=== PATIENT | female | born 1995 | race Native Hawaiian/Other Pacific Islander ===

== ENCOUNTER 2023-11-09 08:15 | Outpatient (CLI) | payer OTHER, SELFPAY ==
[2023-11-09 09:15] LABS: Basophils Percent Auto 0.2 % (0.2-1.2); Eosinophils Absolute Auto 0.1 K/mm3 (0-0.3); Eosinophils Percent Auto 0.6 % (0-4.4); Hematocrit 45.3 % (37.0-47.0); Hemoglobin 15.2 g/dL (12.0-15.0); Immature Granulocyte Absolute 0.06 K/mm3 (0.00-0.031); Immature Granulocyte Percent A 0.5 % (0-0.5); Lymphocytes Absolute Auto 3.06 K/mm3 (0.9-3.2); Lymphocytes Percent Auto 24.1 % (18.3-44.2); Mean Corpuscular HGB Conc 33.6 g/dl (32-36); Mean Corpuscular Hemoglobin 30.4 pg (26-34); Mean Corpuscular Volume 90.6 fl (80-100); Mean Platelet Volume 10.7 fl (7.4-10.4); Monocytes Absolute Auto 0.6 K/mm3 (0.1-0.6); Monocytes Percent Auto 4.5 % (2.6-8.5); Neutrophils Absolute Auto 8.9 K/mm3 (1.3-6.7); Neutrophils Percent Auto 70.1 % (45.5-73.1); Platelet Count Result 367 k/mm3 (150-375); Red Cell Distribution Width 12.2 % (11.5-14.5); White Blood Count 12.7 K/mm3 (4.5-10.0)
[2023-11-09 10:00] LABS: Beta HCG Quantitative < 2.39 mIU/ML
[2023-11-09 10:22] LABS: Hemoglobin A1C 12.4 % (<5.7)
[2023-11-10 11:04] LABS: DHEA-Sulfate 69 mcg/dL (14-349); FSH 4.5 mIU/mL; Progesterone <0.5 ng/mL
[2023-11-10 12:58] LABS: Insulin Level Total 16.9 uIU/mL
[2023-11-13 15:33] LABS: Anti Mullerian Hormone,Female 9.33 ng/mL (0.69-13.39)
[2023-11-14 10:49] LABS: Testosterone Free 2 pg/mL (0.1-6.4); Testosterone Total 11 ng/dL (2-45)
[2023-11-20 01:48] LABS: Estradiol, Ultrasensitive 29 pg/mL
[2023-12-04 20:38] LABS: Free Insulin 10.4 uIU/mL (1.5-14.9)
== END 2023-11-09 08:16 | disposition home or self-care (01) ==
PROVIDERS: Visit Provider Obstetrics & Gynecology
DX: N92.6 Irregular menstruation, unspecified (principal); R73.03 Prediabetes
CPT/HCPCS: 36415; 82627; 82670; 83001; 83036; 83498; 83525; 83527; 84144; 84146; 84402; 84403; 84443; 84702; 85025

== ENCOUNTER 2023-11-17 14:40 | Outpatient (CLI) | payer OTHER, SELFPAY ==
--- NOTE | ~2023-11-17 | XR_ITS ---
EXAMINATION: XR hysterosalpingogram DATE: 11/17/2023 15:13 INDICATION: Female infertility, unspecified. TECHNIQUE: Fluoroscopy was performed by the radiologist during contrast infusion into the endometrial cavity of the uterus by the primary physician. Fluoroscopy exposure time was 0.4 minutes. The total number of images was 5. FINDINGS: The intrauterine cavity is normal in morphology. The fallopian tubes are normal. There is n ormal free intraperitoneal spillage of contrast on either side. IMPRESSION: 1. Normal hysterosalpingogram. Reviewed, dictated and finalized at location A.
== END 2023-11-17 14:41 | disposition home or self-care (01) ==
LOC: ANHIMG 14:40
PROVIDERS: Visit Provider Obstetrics & Gynecology
DX: N92.6 Irregular menstruation, unspecified (principal)
CPT/HCPCS: 58340; 74740; Q9966

== ENCOUNTER 2023-12-06 08:19 | Outpatient (CLI) | payer OTHER, SELFPAY ==
[2023-12-06 08:57] LABS: Anion Gap 10 mmol/L (4-12); Blood Urea Nitrogen 14 mg/dL (7-17); Calcium 9.6 mg/dL (8.4-10.2); Carbon Dioxide 27 mmol/L (22-30); Chloride 100 mmol/L (98-107); Cholesterol 205 mg/dL (0-200); Estimated Glomerular Filt Rate > 60; Glucose 204 mg/dL (65-110); HDL Direct 48 mg/dL; Potassium 4.1 mmol/L (3.4-5.0); Sodium 137 mmol/L (137-145); Triglycerides 146 mg/dL (<150)
[2023-12-06 09:07] LABS: Add Urine Microscopic? YES; Appearance Urine Clear (Clear); Bacteria Urine None Seen /hpf; Bilirubin Urine Negative (Negative); Blood Urine Negative (Negative); Color Urine Yellow (Yellow); Glucose Urine UA Trace mg/dL (Negative); Ketones Urine Negative (Negative); Leukocyte Esterase Ur 1+ LEU/UL (Negative); Need Manual Microscopic Reviewed; Nitrate Urine Negative (Negative); Non Pathogenic Casts 0-2; Protein Urine Negative (Negative); RBC Urine 0-2 /hpf (0-2); Specific Grav Ur 1.011 (1.001-1.035); Squamous Epithelial Cell Urine Occasional /hpf (Few); Urobilinogen Urine 0.2 mg/dL (<2.0); WBC Urine 0-5 /hpf (0-3); pH Urine 6.5 (5.0-9.0)
[2023-12-06 09:08] LABS: LDL Cholesterol Direct 124 mg/dL
[2023-12-08 07:19] LABS: C-Peptide 2.73 ng/mL (0.80-3.85)
== END 2023-12-06 08:20 | disposition home or self-care (01) ==
DX: R79.9 Abnormal finding of blood chemistry, unspecified (principal)
CPT/HCPCS: 36415; 80048; 80061; 81001; 84681; 87086; 87088

== ENCOUNTER 2024-03-16 09:10 | Outpatient (CLI) | payer OTHER, SELFPAY ==
[2024-03-16 10:00] LABS: Basophils Percent Auto 0.3 % (0.2-1.2); Eosinophils Absolute Auto 0.3 K/mm3 (0-0.3); Eosinophils Percent Auto 2.8 % (0-4.4); Hematocrit 38.1 % (37.0-47.0); Hemoglobin 12.6 g/dL (12.0-15.0); Immature Granulocyte Absolute 0.03 K/mm3 (0.00-0.031); Immature Granulocyte Percent A 0.3 % (0-0.5); Lymphocytes Absolute Auto 2.82 K/mm3 (0.9-3.2); Lymphocytes Percent Auto 24.8 % (18.3-44.2); Mean Corpuscular HGB Conc 33.1 g/dl (32-36); Mean Corpuscular Hemoglobin 29.8 pg (26-34); Mean Corpuscular Volume 90.1 fl (80-100); Mean Platelet Volume 10.7 fl (7.4-10.4); Monocytes Absolute Auto 0.8 K/mm3 (0.1-0.6); Monocytes Percent Auto 6.8 % (2.6-8.5); Neutrophils Absolute Auto 7.4 K/mm3 (1.3-6.7); Platelet Count Result 408 k/mm3 (150-375); Red Blood Count 4.23 M/mm3 (4.2-5.4); Red Cell Distribution Width 12.3 % (11.5-14.5); White Blood Count 11.4 K/mm3 (4.5-10.0)
[2024-03-16 10:10] LABS: Alanine Aminotransferase 20 U/L (6-35); Albumin Level 4.8 g/dL (3.5-5.1); Alkaline Phosphatase 46 U/L (38-126); Anion Gap 8 mmol/L (4-12); Aspartate Amino Transferase 22 U/L (14-36); Bilirubin,Total 0.5 mg/dL (0.2-1.3); Blood Urea Nitrogen 12 mg/dL (7-17); Calcium 9.7 mg/dL (8.4-10.2); Carbon Dioxide 23 mmol/L (22-30); Chloride 104 mmol/L (98-107); Estimated Glomerular Filt Rate > 60; Glucose 146 mg/dL (65-110); Lactate Dehydrogenase 111 U/L (120-246); Potassium 3.9 mmol/L (3.4-5.0); Sodium 135 mmol/L (137-145); Uric Acid 5.5 mg/dL (2.5-7.5)
[2024-03-16 10:31] LABS: Hemoglobin A1C 7.7 % (<5.7)
[2024-03-16 10:50] LABS: HIV 1/2 Ab P24 Ag Result Negative (Negative)
[2024-03-16 11:08] LABS: Hepatitis B Surface Antigen Negative (Negative); Rubella IgG Antibody 6.4 IU/ML
[2024-03-16 13:36] LABS: Rapid Plasma Reagin Non-Reactive (NonReactive)
[2024-03-19 09:14] LABS: CMV IgG Antibody <0.60 U/mL; Varicella IgG Antibody 1.59 S/CO
== END 2024-03-16 09:11 | disposition home or self-care (01) ==
PROVIDERS: Visit Provider Obstetrics & Gynecology
DX: N94.89 Other specified conditions associated with female genital organs and menstrual cycle (principal); E11.9 Type 2 diabetes mellitus without complications
CPT/HCPCS: 36415; 80053; 83036; 83615; 84443; 84550; 84702; 85025; 86592; 86644; 86703; 86747; 86762; 86787; 86850; 86900; 86901; 87086; 87340; G0432

== ENCOUNTER 2024-03-18 09:33 | Outpatient (CLI) | payer OTHER, SELFPAY ==
[2024-03-18 09:48] LABS: Collection Time Urine 24 HOURS
[2024-03-18 10:57] LABS: Creatinine Urine 46.8 mg/dL
[2024-03-18 12:11] LABS: Total Volume 24 Hour Urine 2950 ml
[2024-03-18 12:12] LABS: Specific Gravity Ur 1.008
[2024-03-18 12:39] LABS: Creatinine Clearance Urine 160.8 ml/min (75-125); Patient Weight 157 Lbs
[2024-03-18 14:37] LABS: Total Protein Urine 24 Hr 147 mg/24hr (0-149); Total Protein Urine Random < 5.0 mg/dL (0.0-11.9)
== END 2024-03-18 09:34 | disposition home or self-care (01) ==
LOC: ANHLAB 09:34
PROVIDERS: Visit Provider Obstetrics & Gynecology
DX: E11.9 Type 2 diabetes mellitus without complications (principal)
CPT/HCPCS: 81050; 82575; 84156

== ENCOUNTER 2024-04-24 16:05 | Outpatient (CLI) | payer OTHER, SELFPAY ==
--- NOTE | 2024-04-24 16:38 | ECG_ITS ---
Test Date: 2024-04-24 16:42:53 Measurements Intervals [place] Rate: 75 P: 29 IA: 134 QRS: 53 QRSD: 89 T: 12 QT: 359 QTc: 402 Interpretive Statements SINUS RHYTHM LOW QRS VOLTAGE IN PRECORDIAL LEADS [QRS DEFLECTION < 1.0 mV IN CHEST LEADS] NONSPECIFIC T-WAVE ABNORMALITY No previous ECG available for comparison Electronically Signed On 04-25-2024 09:17:17 PULMONOLOGIST INTENSIVIST by Nestor Bee M.D.
== END 2024-04-24 16:06 | disposition home or self-care (01) ==
LOC: ANHCARD 16:08
PROVIDERS: Visit Provider Obstetrics & Gynecology
DX: Z34.90 Encounter for supervision of normal pregnancy, unspecified, unspecified trimester (principal); E11.9 Type 2 diabetes mellitus without complications; Z3A.00 Weeks of gestation of pregnancy not specified; R94.31 Abnormal electrocardiogram [ECG] [EKG]
CPT/HCPCS: 93005

== ENCOUNTER 2024-10-14 08:00 | Outpatient (RCR) | payer OTHER, SELFPAY ==
[2024-08-28 13:16] VITALS: BP 122/79; PULSE 80
[2024-09-07 10:13] VITALS: BP 120/78; PULSE 82
[2024-09-11 08:02] VITALS: BP 115/80; PULSE 71
[2024-09-15 10:15] VITALS: BP 111/82; PULSE 73
[2024-09-18 09:01] VITALS: BP 128/83; PULSE 77
[2024-09-21 11:49] VITALS: BP 115/68; PULSE 81
[2024-09-24 08:44] VITALS: BP 127/79; PULSE 77
[2024-10-03 08:04] VITALS: BP 125/80; PULSE 81
[2024-10-07 09:15] VITALS: BP 138/81; PULSE 79
[2024-10-10 09:13] VITALS: BP 133/71; PULSE 88
--- NOTE | ~2024-10-14 | US_ITS ---
EXAMINATION: US OB BPP wo non-stress DATE: 10/07/2024 09:10 INDICATION: Maternal gestational diabetes during third trimester . TECHNIQUE: Real-time pelvic ultrasound was performed. The interpreting radiologist was not present fo r the study. COMPARISON: None. FINDINGS: There is a single living fetus in vertex presentation. The placenta is on the maternal right. heart rate is 133 beats per minute (bpm). Amniotic fluid volume is subjectively normal with normal de epest vertical pocket measurement of 5.3 cm. Biophysical profile performed by the technologist: breathing (30 sec sustained breathing in 30 minutes): 2 out of 2 movement (3 gross body movements in 30 minutes): 2 out of 2 tone (one episode of efuxpuq-pmdjnyroj-jsiuydb limb movement): 2 out of 2 Amniotic fluid pocket (2 cm): 2 out of 2 Total score: 8 out of 8 IMPRESSION: 1. Single living fetus in vertex presentation with heart rate of 133 bpm. 2. Biophysical profile 8 out of 8. Reviewed, dictated and finalized at location B.
--- NOTE | ~2024-10-14 | US_ITS ---
EXAMINATION: US OB BPP wo non-stress DATE: 09/11/2024 8:41 CDT INDICATION: Type 2 diabetes TECHNIQUE: Real-time transabdominal obstetric ultrasound. FINDINGS: No prior studies for comparison. There is a single living fetus in vertex presentation. The placenta is posterior without placenta pr evia. cardiac activity and movement is noted with a heart rate of 146 beats per minute. Biophysical profile: breathin of 2 movement: 2 of 2 tone: 2 of 2 Amniotic flud pocket: 2 of 2 Total score: 8 of 8 IMPRESSION: 1. Single living intrauterine in vertex presentation. 2: Total biophysical profile score of 8/8. Reviewed, dictated and finalized at location A.
--- NOTE | ~2024-10-14 | US_ITS ---
EXAMINATION: US OB BPP wo non-stress DATE: 10/14/2024 09:28 INDICATION: Type 2 diabetes TECHNIQUE: Real-time pelvic ultrasound was performed. The interpreting radiologist was not present fo r the study. COMPARISON: None. FINDINGS: There is a single living fetus in vertex presentation. The placenta is right posterior. heart rate is 132 beats per minute (bpm). Biophysical profile performed by the technologist: breathing (30 sec sustained breathing in 30 minutes): 2 out of 2 movement (3 gross body movements in 30 minutes): 2 out of 2 tone (one episode of hdgpdlw-alykcoxmy-gkcronu limb movement): 2 out of 2 Amniotic fluid pocket (2 cm): 2 out of 2 Total score: 8 out of 8 IMPRESSION: 1. Single living fetus in vertex presentation with heart rate of 132 bpm. 2. Biophysical profile 8 out of 8. Reviewed, dictated and finalized at location A.
--- NOTE | ~2024-10-14 | US_ITS ---
EXAMINATION: US OB BPP wo non-stress DATE: 09/18/2024 09:47 INDICATION: Type 2 diabetes during third trimester . TECHNIQUE: Real-time pelvic ultrasound was performed. The interpreting radiologist was not present fo r the study. COMPARISON: None. FINDINGS: There is a single living fetus in vertex presentation. The placenta is right posterior. heart rate is 146 beats per minute (bpm). Have fluid volume is subjectively normal with deepest vertical po cket measurement of 6.0 cm. Biophysical profile performed by the technologist: breathing (30 sec sustained breathing in 30 minutes): 2 out of 2 movement (3 gross body movements in 30 minutes): 2 out of 2 tone (one episode of oechcif-uckizyele-efoznca limb movement): 2 out of 2 Amniotic fluid pocket (2 cm): 2 out of 2 Total score: 8 out of 8 IMPRESSION: 1. Single living fetus in vertex presentation with heart rate of 146 bpm. 2. Biophysical profile 8 out of 8. Reviewed, dictated and finalized at location A.
--- NOTE | ~2024-10-14 | US_ITS ---
LIMITED OBSTETRIC ULTRASOUND/BIOPHYSICAL PROFILE Ordering provider: Jesus Cervantes MD History: . BPP, T2 diabetes . Comparison: None. FINDINGS: MATERNAL CERVIX: Not visualized. cm which is normal (normal is equal to or greater than 3.0 cm). PRESENTATION: Vertex. Longitudinal lie. PLACENTAL LOCATION: Posterior maternal right. No previa. HEART RATE: 153 bpm (normal is between 110 to 160 bpm). AMNIOTIC FLUID INDEX: Largest vertical pocket is 4.95 cm. OTHER: Maternal ovaries not visualized. SCORE: breathing movements: 2 movements: 2 tone: 2 Amniotic fluid volume: 2 Total: 8 IMPRESSION: Normal biophysical profile. Reviewed, dictated and finalized at location A. IMPRESSION: Normal biophysical profile.
--- NOTE | ~2024-10-14 | US_ITS ---
LIMITED OBSTETRIC ULTRASOUND/BIOPHYSICAL PROFILE Ordering provider: Jesus Cervantes MD History: . BPP/ type 2 DM . Comparison: None. FINDINGS: PRESENTATION: Vertex Longitudinal lie. PLACENTAL LOCATION: Posterior No previa. HEART RATE: 141 bpm. AMNIOTIC FLUID INDEX: Largest vertical pocket is 4.3 cm. SCORE: breathing movements: 2 movements: 2 tone: 2 Amniotic fluid volume: 2 Total: 8 IMPRESSION: Normal biophysical profile. Reviewed, dictated and finalized at location A. IMPRESSION: Normal biophysical profile.
[2024-10-14 08:46] VITALS: BP 121/77; PULSE 69
== END 2024-10-26 16:07 | disposition home or self-care (01) ==
LOC: ANHOBOP 08:00
PROVIDERS: Visit Provider Student in an Organized Health Care Education/Training Program
DX: O24.419 Gestational diabetes mellitus in pregnancy, unspecified control (principal); Z3A.32 32 weeks gestation of pregnancy; Z3A.33 33 weeks gestation of pregnancy; Z3A.34 34 weeks gestation of pregnancy; Z3A.35 35 weeks gestation of pregnancy; Z3A.36 36 weeks gestation of pregnancy; Z3A.37 37 weeks gestation of pregnancy; Z3A.38 38 weeks gestation of pregnancy
CPT/HCPCS: 59025; 76819; 90710; J2274

== ENCOUNTER 2024-10-17 16:08 | Inpatient (IN) | payer OTHER, SELFPAY ==
--- OUTSIDE RECORDS SUMMARY | 2024-10-17 16:15 | XMS_ITS | Encounter Summary ---
Author Organization [facility] Healthcare Address [address] [place] [address] Care Team Providers Care Ship Loader Name Role Phone No, Physician Primary Care Provider Encounter Details Date Type Department Care Team (Late st Contact Info) Description 07/20/[address] [phone] Gennaro Unger Social History Tobacco Use Types Packs/Day Years Used Date Smoking Tobacco: Never Smokeless Tobacco: Never Personal Safety Answer Date Recorded Have you ever been in or are you currently in a harmful physical or emotional relationship or is someone making you feel afraid or unsafe? Denies 07/20/2024 Estimated Date of Delivery Comme nts Yes 10/28/2024 Based on Other B asis, stated RED from [facility] Sex and Gender Information Value Date Recorded Sex Assigned at Not on file Legal Sex Female 10:50 AM CDT Gender Identity Female 06/04/2024 12:19 PM WATER MAIN INSPECTOR Sexual Orientation Straight 06/04/2024 12 :19 PM WATER MAIN INSPECTOR documented as of this encounter Plan of Treatment Upcoming Encounters Date Type Department Care Team (Late st Contact Info) Description 10/28/2024 Hospital Encounter [address] [phone] BrandonNichole esparza MD [address] [facility] [place] [phone] [place] [address] documented as of this encounter Visit Diagnoses Not on filedocumented in this encounter Care Teams Ship Loader Relationship Specialty Start Date End Date No, Physician PCP - General 02/01/24 documented as of this encounter
--- OUTSIDE RECORDS SUMMARY | 2024-10-17 16:15 | XMS_ITS | Referral Summary ---
Author Organization [facility] Address [address] [place] [address] Care Team Providers Care Wash Operator Name Role Phone No, Physician Primary Care Provider [phone] Encounters Date Type Department Care Team Description 10/15/[address] [phone] Maribel Josue MD Glycemic control meeting 10/08/[address] [phone] Yuliana Leigh MD glycemic control 10/02/[address] [facility] Maternal- Medicine [address] [place] [address] Floor [address] [place] [phone] Ann Marie Elliott RN 09/30/2024 8:45 AM CDT Clinical Support [facility] Obstetrics and Gynecology [address] [place] [address] 09/30/2024 8:20 AM CDT Office Visit [facility] Maternal- Medicine [address] [place] [address] [address] [place] [phone] Pre-existing type 2 diabetes mellitus during in third trimester (Primary Dx); Supervision of high-risk , third trimester 09/30/2024 7:30 AM CDT - 09/30/2024 11:59 PM CDT Hospital Encounter [facility] - Ultrasound [address] [facility], 7th Floor, [address] [place] [address] Pre-existing type 2 diabetes mellitus during in third trimester Discharge Disposition: Discharge to home or self care 09/24/[address] [phone] Maribel Josue MD 09/17/[address] [phone] Maribel Josue MD Glycemic control meeting 09/10/[address] [phone] Yuliana Leigh MD glycemic control meeting 09/03/2024 8:20 AM CDT Office Visit [facility] Maternal- Medicine [address] [place] [address] 7th Floor [address] [place] [address] Pre-existing type 2 diabetes mellitus during in second trimester (Primary Dx); Supervision of high-risk , second trimester 09/03/2024 7:30 AM CDT - 09/03/2024 11:59 PM CDT Hospital Encounter [facility] Outpatient Health - Ultrasound [address] [facility], 7th Floor, [address] [place] [address] Pre-existing type 2 diabetes mellitus during in third trimester Discharge Disposition: Discharge to home or self care 08/27/[address] [phone] Opal Hackett MD 08/20/[address] [phone] Nichole Taylor MD 08/13/[address] [phone] Maribel Josue MD Glycemic control - CGM review 08/05/2024 8:20 AM CDT Office Visit [facility]- [facility] [address] [facility] 7th Floor [address] [place] [address] Pre-existing type 2 diabetes mellitus during in second trimester (Primary Dx); Supervision of high-risk , second trimester 08/05/2024 7:17 AM CDT - 08/05/2024 11:59 PM CDT Hospital Encounter [facility] Outpatient Health - Ultrasound [address] [facility], 7th Floor, [address] [facility] [place] [address] Pre-existing type 2 diabetes mellitus during in third trimester Discharge Disposition: Discharge to home or self care 07/30/[address] [facility] [address] [facility] Medical Office [address] [place] [address] Maribel Josue MD Glycemic control - CGM review 07/23/[address] [phone] Maribel Josue MD Glycemic control - CGM review 07/20/[address] [phone] Gennaro Unger 07/20/2024 1:46 PM CDT - 07/20/2024 2:35 PM CDT Hospital Encounter [address] [phone] Nichole Taylor MD Discharge Disposition: Discharge to home or self care from Last 3 Months Allergies Active Allergy Reactions Criticality Noted Date Comments Amoxicillin Rash Medium 04/17/2024 Amoxicillin-Pot Clavulanate Itching,Rash Medium 2021 Medications aspirin 81 mg enteric coated tablet Take 1 tablet (81 mg total) by mouth daily 30 tablet 4 03/19/20 Active metFORMIN (GLUCOPHAGE) 1,000 mg tablet Take 1 tablet (1,000 mg total) by mouth 2 (two) times a day with meals 60 tablet 4 03/19/20 25 Active Accu-Chek Guide test strips strip USE TO TEST ONCE DAILY NEEDED DIRECTED 4 Active Accu-Chek Softclix Lancets lancets USE TO TEST BLOOD SUGAR FOUR TIMES DAILY 4 Active vit [id number]-ifth-uqaye-d sidhu 27mg iron- 800 mcg-250 mg capsule Take by mouth daily Active insulin lispro (HumaLOG, ADMELOG) 100 unit/mL pen for injection Inject 4 units under the skin with lunch 15 mL 3 5 Active blood-glucose sensor (Dexcom G7 Sensor) device Use as directed. Change sensor every 10 days. 3 each 3 5 Active insulin glargine 100 unit/mL (3 mL) pen for injection Inject 26 units under the skin at bedtime. 15 mL 3 5 Active pen needle, diabetic 33 gauge x 5/32 needle 3 INJECTIONS DAILY DIRECTED 200 each 3 5 Active glucose 4 gram chewable tablet Take 4 tablets (16 g total) by mouth as needed for low blood sugar 50 tablet 12 5 10/03/19 26 Active Active Problems Problem Noted Date Diagnosed Date Rubella non-immune status, antepartum 04/17/2024 Overview (04/17/2024): Recommend Rubella vaccine . Pre-existing type 2 diabetes mellitus during in third trimester 03/19/2024 Overview (10/15/2024): History & Counseling Diagnosed age 28 History of DKA? no Last hemoglobin A1C: 7.7% on 03/2024, previous A1C 12.4% 11/2023 Pre- regimen: metformin 500mg TID Pre- TDD of insulin: 0 Pre- weight: 71kg - S/p counseling Dexcom under Crissy Pang Physician adjusting insulin dosage: MFM Plan Current regimen: 10/15/2024 - no changes, no data available since 10/06 Metformin 1000mg BID Lantus 44 units qHS Lispro 07/25/15 Continue to have carb-balanced lunch and dinner [x] Counseling performed 03/19/24 [x] Diabetes education (ordered 03/19/24, requested insulin teaching in anticipation of needing) [x] Recommend weekly review of BG/insulin data to adjust insulin dosing (enrolled CC 03/19/24) [x] Glucagon prescribed [x] Annual comprehensive eye exam- previously counseled to schedule appt [x] Baseline CMP, 24hr urine protein: Cr 0.6, AST/ALT , 2950 [x] A1c qTrimester- 5.4 on 07/08 [x] First trimester TSH 1.76 [x] ASA starting at 12 weeks gestation [] baseline EKG- discussed and ordered [x] Early detailed anatomy ultrasound wnl [x] Specialized anatomy ultrasound [x] echocardiogram [] Serial growth scans starting at 24 weeks- scheduled [] Twice weekly testing starting at 32 weeks- scheduled [x] insulin plan by 32 weeks: metformin 500mg TID [] Recommend delivery at 39 weeks- encouraged pt to schedule with primary OB Assessment & Plan (09/30/2024 9:37 AM CDT): Pt had not increased her lispro until yesterday and has been doing lispro 12 with lunch and dinner. She had a low 6/21 around 3 am. We discussed importance of verifying with an accu check, treating if <65 and notify us. Will send glucose tabs per pts request. Will plan to do 14 units with lunch and dinner and then continue close monitoring. Pt know to call with BS <65. Discussed importance of 3 meals throughout the day to avoid large spikes after bigger meals. Assessment & Plan (09/03/2024 10:23 AM CDT): Pt with a low last night. Hypoglycemic precautions reviewed. Last night was the first night she did lispro 10. She is worried 10 is going to be too much. She had not yet increased her lunch to 8. After discussing with the pt plan made to continue lantus 34 units qHS and continue 0 with close monitoring. Reviewed importance of waking up to any alarm, verifying lows with an accu check and treating and then notifying us so we can make adjustments as needed. Assessment & Plan (08/05/2024 8:48 AM CDT): CGM reviewed with elevated dinners. Pt ate rice last night which caused her bs to be high. Discussed minimizing carbs like rice. Will increase dinner lispro and continue to work on good diabetic diet. Hypoglycemic precautions reviewed. Assessment & Plan (07/08/2024 9:27 AM CDT): Reviewed importance of weekly BS review. Discussed risks of poorly controlled diabetes and increased insulin resistance as the progresses. Reviewed need to titrate meds weekly. Assessment & Plan (06/10/2024 10:01 AM SECURITY ANALYST): Will set up patients dexcom and review her BS later today. Encouraged weekly review of BS. Pts echo is scheduled. Assessment & Plan (05/13/2024 12:46 PM SECURITY ANALYST): BS reviewed with normal fastings. Occasional high PCs but seems to be diet choices. Pt feels she is for the most part making good diabetic choices. Plan made to add lispro 4 units with dinner unless she is eating a low carb meal and then she will hold. Hypoglycemic precautions reviewed. Pt knows to check bs if symptomatic and call our team with BS <65. Continue weekly titrations. Supervision of high-risk , third trimes ter 03/19/2024 Overview (08/07/2024): [x] Co-management [x] Blue Team Referring Provider: Alejandra Bishop [phone] [] or Medicare Insurance [x] Dating Criteria: RED 10/28/24 [x] Labs: Rh [AB+], Ab [negative], Rubella [NON-IMM], HIV [non- reactive], HepBSAg [non-reactive], HepCAb [not done], RPR [non-reactive], Varicella [positive], GC/CT [not done] [x] Aneuploidy Screening: counseled and declines [] Carrier Screening: [] Hgb electrophoresis: [x] CBC/Hgb: 12.6/38.1/plt 408 [x] 03/16/24 A1c: 7.7 [x] UCx: 05/13/2024 LE [] Pap: [x] LD ASA (if indicated): [] EPDS [ ]; PNBHS referral (if indicated): 2nd Trimester [x] Anatomy ultrasound: complete [x] CBC 24-28wks: 12.1/35.4/313 A1c: 5.4% Vaccines [x] Flu Shot (Dec-Mar): counseled on risks of maternal and and pt declines [x] COVID vaccine: counseled on risks of maternal and and pt declines [] Tdap (27-36wks): plan to get with primary 3rd Trimester labs and delivery with primary OB. -also added CMP Recommend monthly MFM visits with growth US. Recommend 2x/weekly testing at 32 weeks.- confirmed with primary OB office, spoke to Jeanne Currently recommend delivery at 39 weeks. Estimated Date of Delivery Comme nts Yes 10/28/2024 Based on Other B asis, stated RED from [facility] Resolved Problems Problem Noted Date Diagnosed Date Resolved Date Gestational diabetes mellitu s (GDM), antepartum 03/19/2024 08/13/2024 Social History Tobacco Use Types Packs/Day Years Used Date Smoking Tobacco: Never Smokeless Tobacco: Never Tobacco Cessation:Counseling Given: Not Answered Personal Safety Answer Date Recorded Have you [...] CDT Gender Identity Female 06/04/2024 12:19 PM SECURITY ANALYST Sexual Orientation Straight 06/04/2024 12 :19 PM SECURITY ANALYST Last Filed Vital Signs Vital Sign Reading Time Taken Comments Blood Pressure 132/89 09/30/2024 8:36 AM CDT Pulse 86 09/30/2024 8:36 AM CDT Temperature - - Respiratory Rate 18 07/20/2024 1:36 PM CDT Oxygen Saturation 100% 09/30/2024 8:36 AM CDT Inhaled Oxygen Concentration - - Weight 76.2 kg (168 lb) 09/30/2024 8:36 AM CDT Height 157.5 cm (5' 2.01) 09/30/2024 8:36 AM CD T Body Mass Index 30.72 09/30/2024 8:36 AM CDT Plan of Treatment Upcoming Encounters Date Type Department Care Team (Late st Contact Info) Description 10/28/2024 Hospital Encounter [facility] [address] [place] [address] Nichole Taylor MD [phone] [place] [address] Procedures Procedure Name Priority Date/Time Associated Diagnosis Comments US OB FOLLOW UP Schedule Routine, Read Routine (OP Routine) 09/30/2024 7:49 AM CDT Pre-existing type 2 diabetes mellitus during in third trimester US OB FOLLOW UP Schedule Routine, Read Routine (OP Routine) 09/03/2024 7:45 AM CDT Pre-existing type 2 diabetes mellitus during in third trimester US OB FOLLOW UP Schedule Routine, Read Routine (OP Routine) 08/05/2024 7:17 AM CDT Pre-existing type 2 diabetes mellitus during in third trimester POCT GLUCOSE DEVICE Routine 07/20/2024 2:07 PM CDT POCT URINALYSIS (CLINITEK) Routine 07/20/2024 2:01 PM CDT HEMOGLOBIN A1C Routine 07/08/2024 8:50 AM CDT Pre-existing type 2 diabetes mellitus during in third trimester from Last 3 Months or Most Recently Relevant to Health Maintenance Results * US Ob Follow Up (09/30/2024 7:49 AM CDT) Fetus# Fetus1 VIEWPOINT Estimated Weight 2,694 g&grams VIEWPOINT Placenta Details posterior, Previa-no VIEWPOINT Presentation Vertex VIEWPOINT Anatomical Region Laterality Modality Abdomen N/A Ultrasound 09/30/2024 7:51 AM CDT Impressions 09/30/2024 10:43 AM CDT IUP at 36w 0d who presents for growth assessment. Vertex presentation. The interval growth has been appropriate. The EFW plots at the 37%. The biophysical profile is 8/8 with normal breathing motion, body motion, tone and amniotic fluid volume. Narrative Procedure Note Sarah Corrales MD - 09/30/2024 IMPRESSION: IUP at 36w 0d who presents for growth assessment. Vertex presentation. The interval growth has been appropriate. The EFW plots at the 37%. The biophysical profile is 8/8 with normal breathing motion, body motion,tone and amniotic fluid volume. Georgina Mauricio IMPLEMENTATION SERVICES ANALYST IMG OB US PROCEDURE S Final Result * US Ob Follow Up (09/03/2024 7:45 AM CDT) Fetus# Fetus1 VIEWPOINT Estimated Weight 1,857 g&grams VIEWPOINT Placenta Details posterior, Previa-no VIEWPOINT Presentation Vertex VIEWPOINT Anatomical Region Laterality Modality Abdomen N/A Ultrasound 09/03/2024 7:47 AM CDT Impressions 09/03/2024 8:46 AM CDT Normal biometry 1857 g at 32%and amniotic fluid 13.9 cm. The biophysical profile is 8/8 with normal breathing motion, body motion, tone and amniotic fluid volume. Fetus is cephalic; posterior placenta. Narrative Procedure Note Marianela Granados MD - 09/03/2024 IMPRESSION: Normal biometry 1857 g at 32%and amniotic fluid 13.9 cm. The biophysicalprofile is 8/8 with normal breathing motion, body motion, tone andamniotic fluid volume. Fetus is cephalic; posterior placenta. Georgina Mauriico IMPLEMENTATION SERVICES ANALYST IMG OB US PROCEDURE S Final Result * US Ob Follow Up (08/05/2024 7:17 AM CDT) Fetus# Fetus1 VIEWPOINT Estimated Weight 1,116 g&grams VIEWPOINT Placenta Details posterior, Previa-no VIEWPOINT Presentation Vertex VIEWPOINT Anatomical Region Laterality Modality Abdomen N/A Ultrasound 08/05/2024 7:20 AM CDT Impressions 08/05/2024 8:25 AM CDT Normal biometry 1116 g at 28%and amniotic fluid 14.8 cm. Fetus is cephalic; posterior placenta. Narrative Procedure Note Marianela Granados MD - 08/05/2024 IMPRESSION: Normal biometry 1116 g at 28%and amniotic fluid 14.8 cm. Fetus iscephalic; posterior placenta. us Georgina Mauricio IMPLEMENTATION SERVICES ANALYST IMG OB US PROCEDURE S Final Result * POCT glucose (07/20/2024 2:07 PM CDT) Glucose, POC 90 70 - 199 mg/dL Blood 07/20/2024 2:07 PM CDT 07/20/2024 2:07 PM CDT us Nichole Taylor MD LAB POCT ORDERABLES - DRAGAN CE Final Result [facility] [address] [facility] [place] [address] * (ABNORMAL) POCT urinalysis (Clinitek) (07/20/2024 2:01 PM CDT) Color, ur, POC Yellow Yellow Clarity, UA, POC Clear Clear [facility] Glucose, ur, POC Negative Negative [facility] Bilirubin, ur, POC Negative Negative [facility] Ketones, ur, POC Trace(A) Negative [facility] Specific gravity, ur, POC 1.020 1.010 - 1.025 [facility] Blood, ur, POC 3+(A) Negative [facility] pH, ur, POC 6.5 [facility] Comment: Interpretive Data Urine pH is affected by diet, medications, systemic acid-base disturbances, and renal tubular function. pH may affect urinary stone formation. For example, urine pH below 6.0 may help reduce the tendency for calcium phosphate stones and pH greater than 6.0 may reduce the tendency for uric acid stone formation. Source: [facility] [employer]. Last Revised Date: 04-20-2017 Protein, ur, POC Negative Negative [facility] Urobilinogen, ur, POC 0.2 mg/dL mg/dL [facility] Nitrites, ur, POC Negative Negative [facility] Leukocyte esterase, ur, POC Negative Negative [facility] Urine 07/20/2024 2:01 PM CDT 07/20/2024 2:01 PM CDT Nichole Taylor MD LAB POCT ORDERABLES - DRAGAN CE Final Result Performing Organization Address [facility] Co de Phone Number [facility] [place] [place] [address] * Hemoglobin A1c (07/08/2024 8:50 AM CDT) Pathologist [facility] Hgb A1C 5.4 4.0 - 5.6 % Estimated Average Glucose 108 mg/dL [facility] Comment: The ADA recommends reporting an estimated Average Glucose (eAG) with all Hemoglobin A1c results using the equation derived from a study of 507 normal and diabetic adults. Minority populations were underrepresented and children were not included. (Diabetes Care 2020; 43(S1): S66-S76). The eAG is not equivalent to a fasting glucose. Blood 07/08/2024 8:50 AM CDT 07/08/2024 9:25 AM CDT Georgina Mauricio NP LAB BLOOD ORDERABLE S Final Result [facility] [place] [address] from Last 3 Months or Most Recently Relevant to Health Maintenance Insurance [facility] Care Teams Wash Operator Relationship Specialty Start Date End Date No, Physician PCP - General 02/01/24
--- OUTSIDE RECORDS SUMMARY | 2024-10-17 16:15 | XMS_ITS | Clinical Summary ---
Author Organization [facility] Address [address] [place] [address] Care Team Providers Care Fire Alarm Dispatcher Name Role Phone No, Physician Primary Care Provider [phone] Allergies Active Allergy Reactions Criticality Noted Date Comments Amoxicillin Rash Medium 04/17/2024 Amoxicillin-Pot Clavulanate Itching,Rash Medium 2021 Medications aspirin 81 mg enteric coated tablet Take 1 tablet (81 mg total) by mouth daily 30 tablet 11 4 03/19/20 25 Active metFORMIN (GLUCOPHAGE) 1,000 mg tablet Take 1 tablet (1,000 mg total) by mouth 2 (two) times a day with meals 60 tablet 4 03/19/20 25 Active Accu-Chek Guide test strips strip USE TO TEST ONCE DAILY NEEDED DIRECTED 4 Active Accu-Chek Softclix Lancets lancets USE TO TEST BLOOD SUGAR FOUR TIMES DAILY 4 Active vit 36-tumx-cymac-d sidhu 27mg iron- 800 mcg-250 mg capsule [...] Active pen needle, diabetic 33 gauge x /32 needle 3 INJECTIONS DAILY DIRECTED 200 each [...] continue lantus 34 units qHS and continue 0/8/8 with close monitoring. Reviewed importance of waking [...] weekly. Assessment & Plan (06/10/2024 10:01 AM CHILD PSYCHOMETRIST): Will set up patients dexcom and review her BS later today. Encouraged weekly review of BS. Pts echo is scheduled. Assessment & Plan (05/13/2024 12:46 PM CHILD PSYCHOMETRIST): BS reviewed with normal fastings. Occasional high [...] [x] Blue Team Referring Provider: Alejandra Bishop [phone] [] or Medicare Insurance [x] Dating Criteria: [...] diabetes mellitu s (GDM), antepartum 03/19/2024 08/13/2024 Encounters Date Type Department Care Team Description 10/15/[address] [address] Maribel Josue MD Glycemic control meeting 10/08/[address] [address] Yuliana Leigh MD glycemic control 10/02/2024 Orders Only [facility] Maternal- Medicine [address] [place] [address] Floor [address] [place] [address] Ann Marie Elliott RN 09/30/2024 8:45 AM CDT Clinical Support [facility] Obstetrics and Gynecology [address] [place] [id number] 09/30/2024 8:20 AM CDT Office Visit [facility] Maternal- Medicine [address] [place] [address] Floor [address] [place] [address] Pre-existing type 2 diabetes mellitus during in third trimester (Primary Dx); Supervision of high-risk , third trimester 09/30/2024 7:30 AM CDT - 09/30/2024 11:59 PM CDT Hospital Encounter [facility] Outpatient [facility] - Ultrasound [address] [place] [address], [facility] Floor, [address] [place] [address] Pre-existing type 2 diabetes mellitus during in third trimester Discharge Disposition: Discharge to home or self care 09/24/[address] [address] Maribel Josue MD 09/17/[address] [address] Maribel Josue MD Glycemic control meeting 09/10/[address] [address] Yuliana Leigh MD glycemic control meeting 09/03/2024 8:20 AM CDT Office Visit [facility] Maternal- Medicine [address] [place] [address] Health 7th Floor [address] [place] [address] Pre-existing type 2 diabetes mellitus during in second trimester (Primary Dx); Supervision of high-risk , second trimester 09/03/2024 7:30 AM CDT - 09/03/2024 11:59 PM CDT Hospital Encounter [facility] - Ultrasound [address] [place] [address], 7th Floor, [address] [place] [address] Pre-existing type 2 diabetes mellitus during in third trimester Discharge Disposition: Discharge to home or self care 08/27/[address] [address] Opal Hackett MD 08/20/[address] [address] Nichole Taylor MD 08/13/[address] [address] Maribel Josue MD Glycemic control - CGM review 08/05/2024 8:20 AM CDT Office Visit [facility] Maternal- Medicine [address] [place] [address] Health 7th Floor [address] [place] [address] Pre-existing type 2 diabetes mellitus during in second trimester (Primary Dx); Supervision of high-risk , second trimester 08/05/2024 7:17 AM CDT - 08/05/2024 11:59 PM CDT Hospital Encounter [facility] - Ultrasound [address] [place] [address], 7th Floor, [address] [place] [address] Pre-existing type 2 diabetes mellitus during in third trimester Discharge Disposition: Discharge to home or self care 07/30/2024 Documentation [facility] Maternal- Medicine [facility] [address] [facility] Medical Office [address] [place] [phone] Maribel Josue MD Glycemic control - CGM review 07/23/[address] [address] Maribel Josue MD Glycemic control - CGM review 07/20/2024 1:46 PM CDT - 07/20/2024 2:35 PM CDT Hospital Encounter [address] [address] Nichole Taylor MD Discharge Disposition: Discharge to home or self care 07/20/[address] [address] Gennaro Unger from Last 3 Months Surgical History Surgery Date Site/Laterality Comments TYMPANOSTOMY TUBE PLACEMENT Medical History Medical History Date Comments Type 2 diabetes mellitus (HCC) Social History Tobacco Use Types Packs/Day Years [...] CDT Gender Identity Female 06/04/2024 12:19 PM CHILD PSYCHOMETRIST Sexual Orientation Straight 06/04/2024 12 :19 PM CHILD PSYCHOMETRIST Obstetrics History Para Term AB IAB SAB Ectopic Multiple Livin g Live Births 1 Date Outcome GA Total Labor Labor/2nd/3rd Weight Sex Type Anes PTL Sendy A1 A5 Name Clin Current Summary Episode Dates Number of Fetuses Estimated Date of Delivery 03/19/2024 - Present (10/17/2024) 1 10/28/2024 (set by Zahra Akhtar MD on 03/19/2024 based on Other Basis) Dating Summary Based On RED GA Diff Other Basis 10/28/2024 Working Comment:stated RED from Thri ve Overview and Plan :[place] sex:Male Support person:Francesco Post-Delivery Plans Feeding intentions:Breast Milk Vitals Pregravid Weight Height TWG (As of 10/17/2024) Pregrav id BMI 157.5 cm (5' 2.01) Date GA Fund Present FHR Mvmt BP Weight Edema Alb Glu Ket Dil/ Eff/Sta 5 12w2d Inpatient data not displayed here. See encounter summary. 5 20w0d Inpatient data not displayed here. See encounter summary. 5 24w0d Inpatient data not displayed here. See encounter summary. 5 25w5d Inpatient data not displayed here. See encounter summary. 5 28w0d Inpatient data not displayed here. See encounter summary. 5 32w1d Inpatient data not displayed here. See encounter summary. 5 36w0d Inpatient data not displayed here. See encounter summary. Notes Progress Notes - Office Visi t - 09/30/2024 - GA:36w0d 09/30/2024 - 36w0d - Georgina Aceves, JM Dear Dr. Bishop, It was a pleasure meeting again with our mutual patient in continued consultation. MFM Return Visit 09/30/2024 Crissy Reyes is a 29 y.o. at 36w0d who is here for a return OB visit. Her is complicated by T2DM. Subjective: Overall doing well. She denies contractions, loss of fluid, or vaginal bleeding and reports good movement. She does not have glucose tabs at home. Objective: BP 132/89 Pulse 86 Ht 157.5 cm (5' 2.01) Wt 168 lb (76.2 kg) SpO2 100% BMI 30.72 kg/m General: NAD Abdomen: Soft, gravid, NT, FHR + Ultrasound: AGA, BPP 8/8- see finalized US report Assessment/Plan: Crissy Reyes is a 29 y.o. at 36w0d with a complicated by the following: Problem List G1 RED 10/28/24 Pre-existing type 2 diabetes mellitus during in third trimester - Primary Overview History & Counseling Diagnosed age 28 History of DKA? no Last hemoglobin A1C: 7.7% on 03/2024, previous A1C 12.4% 11/2023 Pre- regimen: metformin 500mg TID Pre- TDD of insulin: 0 Pre- weight: 71kg - S/p counseling Dexcom under Crissy Pang Physician adjusting insulin dosage: MFM Plan Current regimen: 09/30/2024 Metformin 1000mg BID Lantus 40u qHS Lispro --> Continue to have carb-balanced lunch and dinner [...] encouraged pt to schedule with primary OB Current Assessment & Plan Pt had not increased her lispro until [...] to avoid large spikes after bigger meals. Supervision of high-risk , third trimester Overview [x] Co-management [x] Blue Team Referring Provider: Alejandra Bishop [phone] [] or Medicare Insurance [x] Dating Criteria: [...] Jeanne Currently recommend delivery at 39 weeks. Hospital precautions reviewed. Thank you for allowing me to participate in the care of this radha patient. If you have any questions or concerns do not hesitate to contact our office. Sincerely, BENEDICTO Pathak Progress Notes - Office Visi t - 09/03/2024 - GA:32w1d 09/03/2024 - 32w1d - Georgina Aceves NP Dear Dr. Bishop, It was a pleasure meeting again with our mutual patient in continued consultation. MFM Return Visit 09/03/2024 Crissy Reyes is a 28 y.o. at 32w1d who is here for a return OB visit. Her is complicated by T2DM. Subjective: Feels well today. She denies contractions, loss of fluid, or vaginal bleeding and reports good movement. Reports waking up to the low last night but not verifying or treating. She is worried 10 units at dinner will be too much. Objective: BP 114/80 Pulse 80 Ht 157.5 cm (5' 2.01) Wt 160 lb (72.6 kg) SpO2 100% BMI 29.25 kg/m General: NAD Abdomen: Soft, gravid, NT, FHR + Ultrasound: AGA, BPP 11/15- see finalized US report Assessment/Plan: Crissy Reyes is a 28 y.o. at 32w1d with a complicated by the following: Problem List G1 RED 10/28/24 Pre-existing type 2 diabetes mellitus during in second trimester - Primary Overview History & Counseling Diagnosed age 28 History of DKA? no Last hemoglobin A1C: 7.7% on 03/2024, previous A1C 12.4% 11/2023 Pre- regimen: metformin 500mg TID Pre- TDD of insulin: 0 Pre- weight: 71kg - S/p counseling Dexcom under Crissy Bird Plan - Current regimen: 09/03/2024 Metformin 1000mg BID Lantus 34u qHS Lispro --> Continue to have carb-balanced lunch and dinner - Pt is downloading dexcom Within[employer] jocelyn 07/08/2024 - Physician adjusting insulin dosage: MFM [x] Counseling performed 03/19/24 [x] Diabetes education [...] insulin plan by 32 weeks: metformin 500mg TID- confirm with pt next appt [] Delivery at [id number] ([id number] \with vascular complications or poorly controlled) Current Assessment & Plan Pt with a low last night. Hypoglycemic precautions reviewed. Last night was the first night she did lispro 10. She is worried 10 is going to be too much. She had not yet increased her lunch to 8. After discussing with the pt plan made to continue lantus 34 units qHS and continue 0/8 with close monitoring. Reviewed importance of waking up to any alarm, verifying lows with an accu check and treating and then notifying us so we can make adjustments as needed. Supervision of high-risk , second trimester Overview [x] Co-management [x] Blue Team Referring Provider: Alejandra Bishop [phone] [] [employer] or Medicare Insurance [x] Dating Criteria: RED [...] Jeanne Currently recommend delivery at 39 weeks. Hospital precautions reviewed. Thank you for allowing me to participate in the care of this radha patient. If you have any questions or concerns do not hesitate to contact our office. Sincerely, BENEDICTO Pathak Cosigned by Magnolia Richardson MD at 09/03/2024 10:41 AM CDT Progress Notes - Office Visi t - 08/05/2024 - GA:28w0d 08/05/2024 - w0d - Karthik Ceballos RN Called Primary OB office spoke with Jeanne, discussed beginning 32weeks pt will need 2/weekly testing and monthly appts to alternate MFM appts. NSTs will be done at office but are unable to perform BPPs, pt would need to go to [facility] or [facility] 08/05/2024 - w0d - Georgina Aceves NP Dear Dr. Bishop, It was a pleasure meeting again with our mutual patient in continued consultation. MFM Return Visit 08/05/2024 Crissy Reyes is a 28 y.o. at 24w0d who is here for a return OB visit. Her is complicated by T2DM. Subjective: Feels well today. She denies contractions, loss of fluid, or vaginal bleeding and reports good movement. She reports one episode of spotting after intercourse. She reports last night have RUQ pain but states she does not have it currently. She denies headaches or visual changes. Denies itching. Objective: BP 120/83 Pulse 94 Wt 158 lb 6.4 oz (71.8 kg) SpO2 99% BMI 28.96 kg/m General: NAD Abdomen: Soft, gravid, NT, FHR + Ultrasound: AGA- see finalized US report Assessment/Plan: Crissy Reyes is a 28 y.o. at 24w0d with a complicated by the following: Problem List G1 RED 10/28/24 Pre-existing type 2 diabetes mellitus during in second trimester - Primary Overview History & Counseling Diagnosed age 28 History of DKA? no Last hemoglobin A1C: 7.7% on 03/2024, previous A1C 12.4% 11/2023 Pre- regimen: metformin 500mg TID Pre- TDD of insulin: 0 Pre- weight: 71kg - S/p counseling Plan - Current regimen: 08/05/2024 Metformin 1000mg BID Lantus 26u qHS Lispro 0--> Lispro 0 Continue to have carb-balanced lunch and dinner - Pt is downloading [employer] jocelyn 07/08/2024 - Physician adjusting insulin dosage: MFM [x] Counseling performed 03/19/24 [x] Diabetes education (ordered 03/19/24, requested insulin teaching in anticipation of needing) [x] Recommend weekly review of BG/insulin data to adjust insulin dosing (enrolled CC 03/19/24) [x] Glucagon prescribed [x] Annual comprehensive eye exam- previously counseled to schedule appt [x] Baseline CMP, 24hr urine protein: Cr 0.6, AST/ALT 22/, 2950 [x] A1c qTrimester- 5.4 on 07/08 [x] First trimester TSH 1.76 [x] ASA starting at 12 weeks gestation [] baseline EKG- discussed and ordered [x] Early detailed anatomy ultrasound wnl [x] Specialized anatomy ultrasound [x] echocardiogram [] Serial growth scans starting at 24 weeks- scheduled [] Twice weekly testing starting at 32 weeks- will reach out to primary to help arrange [] insulin plan by 32 weeks [] Delivery at [id number] ([id number] \with vascular complications or poorly controlled) Current Assessment & Plan CGM reviewed with elevated dinners. Pt ate rice last night which caused her bs to be high. Discussed minimizing carbs like rice. Will increase dinner lispro and continue to work on good diabetic diet. Hypoglycemic precautions reviewed. Supervision of high-risk , second trimester Overview [x] Co-management [x] Blue Team Referring Provider: Alejandra Bishop [phone] [] or Medicare Insurance [x] Dating Criteria: [...] Trimester labs and delivery with primary OB. Recommend monthly MFM visits with growth US. Recommend 2x/weekly testing at 32 weeks. Currently recommend delivery at 39 weeks. #RUQ pain - will add CMP to upcoming labs - preE/cholestasis/gallbladder precautions reviewed Hospital precautions reviewed. Thank you for allowing me to participate in the care of this radha patient. If you have any questions or concerns do not hesitate to contact our office. Sincerely, BENEDICTO Pathak Progress Notes - Documentati on - 07/30/2024 - GA:27w1d 07/30/2024 - w1d - Maribel Josue MD Images from the original note were not included. Glycemic Control Meeting 07/30/2024 This patient was discussed at the glycemic control meeting on 07/30/2024. I have analyzed and interpreted > 72 hours of ambulatory continuous glucose monitoring of interstitial fluid via a subcutaneous sensor for Crissy Reyes. Occasional increases in post-prandial mealtime values, however not consistently with every meal. Therefore, will not make recommendations to change short-acting insulin at this time. The following adjustments have been proposed: - Current regimen: 07/30/2024 - no changes Metformin 1000mg BID Lantus 26u qHS Lispro This note has been sent to MFM RN for coordination of patient care and to communicate proposed adjustments. The problem list has been updated. I have spent 5 total minutes on remote diabetes management. Maribel Josue MD Credit Collections Rep Division of Maternal- Medicine and Ultrasound Department of Obstetrics and Gynecology [facility] Progress Notes - Orders Only - 07/16/2024 - GA:25w1d 07/16/2024 - 25w1d - Marie Luna RN Blood sugar review Progress Notes - Office Visi t - 07/08/2024 - GA:24w0d 07/08/2024 - 24w0d - Georgina Aceves NP Dear Dr. Bishop, It was a pleasure meeting again with our mutual patient in continued consultation. MFM Return Visit 07/08/2024 Crissy Reyes is a 28 y.o. at 24w0d who is here for a return OB visit. Her is complicated by T2DM. Subjective: Feels well today. She denies contractions, loss of fluid, or vaginal bleeding. She uploaded her BS last night to [employer] for the first time in a month for review. She plans to download the Within3 jocelyn for weekly review of BS by MFM team. Objective: BP 123/82 Pulse 80 Wt 152 lb 6.4 oz (69.1 kg) SpO2 100% BMI 27.87 kg/m General: NAD Abdomen: Soft, gravid, NT, FHR + Ultrasound: AGA- see finalized US report Assessment/Plan: Crissy Reyes is a 28 y.o. at 24w0d with a complicated by the following: Problem List G1 RED 10/28/24 Pre-existing type 2 diabetes mellitus during in third trimester - Primary Overview History Diagnosed age 28 History of DKA? no Last hemoglobin A1C: 7.7% on 03/2024, previous A1C 12.4% 11/2023 Pre- regimen: metformin 500mg TID Pre- TDD of insulin: 0 Pre- weight: 71kg S/p counseling Current regimen: 07/08/2024 Metformin 1000mg BID Lantus 26u qHS lispro 6u lunch and 4u dinner (pt rarely taking)--> 0//4- pt will consistently start taking 4 units with dinner and if >140 will increase to 6 units and notify us Continue to cut carbs lunch and dinner Pt is downloading [employer] jocelyn 07/08/2024- reviewed importance of weekly BS review either via my rn patient care or via [employer] jocelyn Physician adjusting insulin dosage: MFM Plan: [x] Counseling performed 03/19/24 [x] Diabetes education (ordered 03/19/24, requested insulin teaching in anticipation of needing) [x] Recommend weekly review of BG/insulin data to adjust insulin dosing (enrolled CC 03/19/24) [x] Glucagon prescribed [x] Annual comprehensive eye exam- previously counseled to schedule appt [x] Baseline CMP, 24hr urine protein: Cr 0.6, AST/ALT 22/, 2950 [x] A1c qTrimester [x] First trimester TSH 1.76 [x] ASA starting at 12 weeks gestation [] baseline EKG- discussed and ordered [x] Early detailed anatomy ultrasound wnl [x] Specialized anatomy ultrasound [x] echocardiogram [] Serial growth scans starting at 24 weeks- scheduled [] Twice weekly testing starting at 32 weeks [] insulin plan by 32 weeks [] Delivery at 39 0/7-39 6/7. (36 0/7 to 38 6/7 with vascular complications or poorly controlled) Current Assessment & Plan Reviewed importance of weekly BS review. Discussed risks of poorly controlled diabetes and increased insulin resistance as the progresses. Reviewed need to titrate meds weekly. Relevant Orders Hemoglobin A1c Supervision of high-risk , first trimester Overview [x] Co-management [x] Blue Team Referring Provider: Alejandra Bishop [phone] [] or Medicare Insurance [x] Dating Criteria: RED 10/28/24 [x] Labs: Rh [AB+], Ab [negative], Rubella [ NI], HIV [ non-reactive], HepBSAg [non-reactive], HepCAb [not done], RPR [non-reactive], Varicella [positive], GC/CT [not done] [] Aneuploidy Screening: counseled and declines [] Carrier Screening: [] Hgb electrophoresis: [x] CBC/Hgb: 12.6/38.1/plt 408 [x] 03/16/24 A1c: 7.7 [x] UCx: 05/13/2024 LE [] Pap: [x] LD ASA (if indicated): [] EPDS [ ]; PNBHS referral (if indicated): 2nd Trimester [x] Anatomy ultrasound: complete [] CBC 24-28wks: ordered for today with A1c Vaccines [] Flu Shot (Dec-Mar): counseled on risks of maternal and and pt declines [] COVID vaccine: counseled on risks of maternal and and pt declines [] Tdap (27-36wks): 3rd Trimester labs and delivery with primary OB. Recommend monthly MFM visits with growth US. Recommend 2x/weekly testing at 32 weeks. Currently recommend delivery at 39 weeks. Relevant Orders CBC without differential Hospital precautions reviewed. My total encounter time on 07/08/2024 was 20 minutes. 15 minutes was spent counseling the patient. 5 minutes was spent reviewing records and her US prior to the visit. This time does not include time spent in any separately reportable services. Thank you for allowing me to participate in the care of this radha patient. If you have any questions or concerns do not hesitate to contact our office. Sincerely, BENEDICTO Pathak Progress Notes - Office Visi t - 06/10/2024 - GA:20w0d 06/10/2024 - wd - Georgina Aceves NP Dear Dr. Bishop, It was a pleasure meeting again with our mutual patient in continued consultation. MFM Return Visit 06/10/2024 Crissy Reyes is a 28 y.o. at 20w0d who is here for a return OB visit. Her is complicated by T2DM. Subjective: Feels well today. She denies cramping, loss of fluid, or vaginal bleeding. She denies issues with n/v. She is currently wearing a dexcom and reports overall good glycemic control. Objective: BP 135/84 Pulse 88 Ht 157.5 cm (5' 2) Wt 153 lb 6.4 oz (69.6 kg) SpO2 100% BMI 28.06 kg/m General: NAD Abdomen: Soft, gravid, NT, FHR + Ultrasound: anatomy complete and wnl- see finalized US report Assessment/Plan: Crissy Reyes is a 28 y.o. at 20w0d with a complicated by the following: Problem List G1 RED 10/28/24 Pre-existing type 2 diabetes mellitus during in third trimester - Primary Overview History Diagnosed age 28 History of DKA? no Last hemoglobin A1C: 7.7% on 03/2024, previous A1C 12.4% 11/2023 Pre- regimen: metformin 500mg TID Pre- TDD of insulin: 0 Pre- weight: 71kg S/p counseling Message sent from Marie 06/10/2024 to help set up dexcom so we are able to view BS Current regimen: 05/29/2024 Metformin 1000mg BID Lantus 22 units qHS----> 26u qHS lispro 4U with lunch, 4 units with dinner ---> 6u lunch and 4u dinner Continue to cut carbs lunch and dinner 06/03/2024- ran out of sensors, still trying to call multiple pharmacies to see who has it in stock 05/21/24 msg sent for BS 05/28/24 msg sent for BS Physician adjusting insulin dosage: MFM Plan: [x] Counseling performed 12/10/24 [x] Diabetes education (ordered 03/19/24, requested insulin teaching in anticipation of needing) [x] Recommend weekly review of BG/insulin data to adjust insulin dosing (enrolled CC 03/19/24) [x] Glucagon prescribed [] Annual comprehensive eye exam- last visit 2022, recommended patient make appt 03/19 [x] Baseline CMP, 24hr urine protein: Cr 0.6, AST/ALT /, 2950 [x] A1c qTrimester [x] First trimester TSH 1.76 [x] ASA starting at 12 weeks gestation [] baseline EKG- discussed and ordered [x] Early detailed anatomy ultrasound wnl [x] Specialized anatomy ultrasound [] echocardiogram- scheduled [] Serial growth scans starting at 24 weeks- scheduled [] Twice weekly testing starting at 32 weeks [] insulin plan by 32 weeks [] Delivery at 39 0/7-39 6/7. (36 0/7 to 38 6/7 with vascular complications or poorly controlled) Current Assessment & Plan Will set up patients dexcom and review her BS later today. Encouraged weekly review of BS. Pts echo is scheduled. Relevant Orders US Ob Follow Up Supervision of high-risk , first trimester Overview [x] Co-management [x] Blue Team Referring Provider: Alejandra Bishop [phone] [] [employer] or Medicare Insurance [x] Dating Criteria: RED 10/28/24 [x] Labs: Rh [AB+], Ab [negative], Rubella [ NI], HIV [ non-reactive], HepBSAg [non-reactive], HepCAb [not done], RPR [non-reactive], Varicella [positive], GC/CT [not done] [] Aneuploidy Screening: counseled and declines [] Carrier Screening: [] Hgb electrophoresis: [x] CBC/Hgb: 12.6/38.1/plt 408 [x] 03/16/24 A1c: 7.7 [x] UCx: 05/13/2024 LE [] Pap: [x] LD ASA (if indicated): [] EPDS [ ]; PNBHS referral (if indicated): 2nd Trimester [x] Anatomy ultrasound: complete [] CBC 24-28wks: Vaccines [] Flu Shot (Dec-Dec): counseled on risks of maternal and and pt declines [] COVID vaccine: counseled on risks of maternal and and pt declines [] Tdap (27-36wks): 3rd Trimester labs and delivery with primary OB. Recommend monthly MFM visits with growth US. Recommend 2x/weekly testing at 32 weeks. Currently recommend delivery at 39 weeks. Hospital precautions reviewed. My total encounter time on 06/10/2024 was 20 minutes. 15 minutes was spent counseling the patient. 5 minutes was spent reviewing records and her US prior to the visit. This time does not include time spent in any separately reportable services. Thank you for allowing me to participate in the care of this radha patient. If you have any questions or concerns do not hesitate to contact our office. Sincerely, BENEDICTO Pathak D PSYCHOMETRIST Progress Notes - Office Visi t - 05/13/2024 - GA:16w0d 05/13/2024 - 16w0d - Georgina Aceves NP Dear Dr. Bishop, It was a pleasure meeting again with our mutual patient in continued consultation. MFM Return Visit 05/13/2024 Crissy Reyes is a 28 y.o. at 16w0d who is here for a return OB visit. Her is complicated by T2DM. Subjective: Feels well today. She denies cramping, loss of fluid, or vaginal bleeding. Objective: BP 123/85 Pulse 88 Wt 151 lb 3.2 oz (68.6 kg) SpO2 99% General: NAD Abdomen: Soft, gravid, NT, FHR + Ultrasound: n/a Assessment/Plan: Crissy Reyes is a 28 y.o. at 16w0d with a complicated by the following: Problem List G1 RED 10/28/24 Pre-existing type 2 diabetes mellitus during in third trimester - Primary Overview History Diagnosed age 28 History of DKA? no Last hemoglobin A1C: 7.7% on 03/2024, previous A1C 12.4% 11/2023 Pre- regimen: metformin 500mg TID Pre- TDD of insulin: 0 Pre- weight: 71kg S/p counseling Current regimen: 05/13/2024 Metformin 1000mg BID Lantus 22 units qHS lispro 4U with lunch, 4 units with dinner (pt will hold insulin with low carb meals) Physician adjusting insulin dosage: MFM Plan: [x] Counseling performed 03/19/24 [x] Diabetes education (ordered 03/19/24, requested insulin teaching in anticipation of needing) [x] Recommend weekly review of BG/insulin data to adjust insulin dosing (enrolled CC 03/19/24) [x] Glucagon prescribed [] Annual comprehensive eye exam- last visit 2022, recommended patient make appt 03/19 [x] Baseline CMP, 24hr urine protein: Cr 0.6, AST/ALT , 2950 [x] A1c qTrimester [x] First trimester TSH 1.76 [x] ASA starting at 12 weeks gestation [] baseline EKG- discussed and ordered [x] Early detailed anatomy ultrasound wnl [] Specialized anatomy ultrasound at 18-20 weeks- scheduled [] echocardiogram- requested [] Serial growth scans starting at 24 weeks [] Twice weekly testing starting at 32 weeks [] insulin plan by 32 weeks [] Delivery at 39 0/7-39 6/7. (36 0/7 to 38 6/7 with vascular complications or poorly controlled) Current Assessment & Plan BS reviewed with normal fastings. Occasional high [...] Continue weekly titrations. Supervision of high-risk , first trimester Overview [x] Co-management [x] Blue Team Referring Provider: Alejandra Bishop [phone] [] or Medicare Insurance [x] Dating Criteria: RED 10/28/24 [x] Labs: Rh [AB+], Ab [negative], Rubella [ NI], HIV [ non-reactive], HepBSAg [non-reactive], HepCAb [not done], RPR [non-reactive], Varicella [positive], GC/CT [not done] [] Aneuploidy Screening: counseled and declines [] Carrier Screening: [] Hgb electrophoresis: [x] CBC/Hgb: 12.6/38.1/plt 408 [x] 03/16/24 A1c: 7.7 [x] UCx: 05/13/2024 LE [] Pap: [x] LD ASA (if indicated): [] EPDS [ ]; PNBHS referral (if indicated): 2nd Trimester [] Anatomy ultrasound: scheduled [] CBC 24-28wks: 3rd Trimester [] CBC/HIV/RPR/T&S: [] GBS: [] GC/CT (if indicated): [] testing: Counseling [] MOD: [] Place of delivery: [] Epidural: [] Accepts Blood Products: [] Stop ASA: [] MOC: [] Method of feeding: [] Loss Control Consultant (specifically which provider): [] PP Depression Discussed: [] PP visits scheduled: Vaccines [] Flu Shot (Sep-Dec): [] COVID vaccine: [] Tdap (27-36wks): [] RSV vaccine (32-36wks): [] PP HPV vaccine counseling (<=26 yo): Relevant Orders Urine culture Urine, clean voided Hospital precautions reviewed. My total encounter time on 05/13/2024 was 20 minutes. 15 minutes was spent counseling the patient. 5 minutes was spent reviewing records prior to the visit. This time does not include time spent in any separately reportable services Thank you for allowing me to participate in the care of this radha patient. If you have any questions or concerns do not hesitate to contact our office. Sincerely, BENEDICTO Pathak D PSYCHOMETRIST Progress Notes - Office Visi t - 04/17/2024 - GA:12w2d 04/17/2024 - 12w2d - Marv Ferguson MD MFM Return Consult Visit 04/17/[address] Bishop It was a pleasure meeting again with our mutual patient in continued consultation. Crissy Reyes is a 28 y.o. at 12w2d by who is comanaged with Dr.Kristen Bishop. Her is complicated by T2DM, Rubella non-immune. Subjective: She reports feeling well. She reports mild nausea without vomiting. She does not feel she needs any medication currently to control these symptoms. Denies vaginal bleeding, loss of fluid, cramping. Objective: BP 130/83 Pulse 76 Wt 155 lb 12.8 oz (70.7 kg) SpO2 100% General: alert, cooperative, in no distress Heart: regular rate Lungs: non-labored respirations Abdomen: gravid Extremities: warm and well-perfused Ultrasound: 04/17/2024 12w2d: CRL AGA (60%tile). No structural malformations are apparent on early anatomic survey. Please see report for full details. Assessment/Plan: Crissy Reyes is a 28 y.o. at 12w2d with a complicated by T2DM, Rubella non-immune. Problem List High Pre-existing type 2 diabetes mellitus during in third trimester - Primary Overview History Diagnosed age 28 History of DKA? no Last hemoglobin A1C: 7.7% on 03/2024, previous A1C 12.4% 11/2023 Pre- regimen: metformin 500mg TID Pre- TDD of insulin: 0 Pre- weight: 71kg S/p counseling Plan - Current regimen: 04/17/2024 Metformin 1000mg BID Lantus 18 units qHS Start lispro 4U with lunch - Physician adjusting insulin dosage: MFM [x] Counseling performed 03/19/24 [x] Diabetes education (ordered 03/19/24, requested insulin teaching in anticipation of needing) [x] Recommend weekly review of BG/insulin data to adjust insulin dosing (enrolled CC 03/19/24) [x] Glucagon prescribed [] Annual comprehensive eye exam- last visit 2022, recommended patient make appt 03/19 [x] Baseline CMP, 24hr urine protein: Cr 0.6, AST/ALT /, 2950 [x] A1c qTrimester [x] First trimester TSH 1.76 [x] ASA starting at 12 weeks gestation [] Please order patient for baseline EKG [x] Early detailed anatomy ultrasound wnl [] Specialized anatomy ultrasound at 18-20 weeks [] echocardiogram [] Serial growth scans starting at 24 weeks [] Twice weekly testing starting at 32 weeks [] insulin plan by 32 weeks [] Delivery at 39 0/7-39 6/7. (36 0/7 to 38 6/7 with vascular complications or poorly controlled) Unprioritized Supervision of high-risk , first trimester Overview [x] Co-management vs. [] Full MFM Care; [] Red Team [x] Blue Team Referring Provider: Alejandra Bishop [phone] Thank you again for allowing us to participate in the care of your patient, please do not hesitate to contact our office if you have further questions. We will plan to see her for follow up again in 4 weeks and will continue to review her blood glucose logs remotely on a weekly basis. She was seen and examined with , who is in agreement with the documented assessment and plan. Sincerely, Marv Ferguson MD Obstetrics and Gynecology, PGY-3 Cosigned by Opal Hackett MD at 04/17/2024 4:16 PM CHILD PSYCHOMETRIST D PSYCHOMETRIST D PSYCHOMETRIST Associated attestation - Opal Hackett MD - 04/17/2024 4:16 PM CHILD PSYCHOMETRIST Attending Attestation I have seen, examined, and discussed Crissy Reyes with Dr. Ferguson on 04/17/2024. I agree with the findings and the plan of care as documented. Progress Notes - Telemedicin e - 03/19/2024 - GA:8w1d 03/19/2024 - 8w1d - Zahra Akhtar MD Maternal Medicine Consult Note Reason for Consult: T2DM, preconception Requesting Provider: Dr. Alejandra Bishop Dear Dr. Bishop, We had the pleasure of seeing your patient Crissy Reyes in our office today. As you know, she is a 28 y.o. at 8w1d here today for a consult regarding T2DM in . Her is otherwise uncomplicated. Of note, she was initially scheduled as a preconception consult, however reports that she recently found out she was and given a due date of 10/28/24 based on ultrasound at [facility]. This is a planned and desired . She reports that she is feeling mild nausea, no emesis. She had one episode of spotting that is completely resolved. Past Medical History: Diagnosis Date Type 2 diabetes mellitus (HCC) Past Surgical History: Procedure Laterality Date TYMPANOSTOMY TUBE PLACEMENT Current Outpatient Medications Medication Instructions aspirin 81 mg, oral, Daily metFORMIN (GLUCOPHAGE) 1,000 mg, oral, 2 times daily with meals (bkfst, dinner) No Known Allergies Social History Tobacco Use Smoking status: None Smokeless tobacco: None Substance and Sexual Activity Drug use: Never Sexual activity: Yes Alcohol Use: Not on file OB History Para Term AB Living 1 SAB IAB Ectopic Multiple Live Births # Outcome Date GA Lbr Fermin/2nd Weight Sex Type Anes PTL Lv 1 Current Past Gynecologic History: Prior STIs: remote history of CT, treated History of abnormal pap: no Last pap smear: 10/2023, normal No LMP recorded. Patient is . Denies history of uterine anomalies or fibroids Family History: Neural tube defects: No Down syndrome or other chromosomal anomalies: No Hemophilia, sickle cell, bleeding/clotting disorder: No Muscular dystrophy: No Cystic fibrosis: No Intellectual disability or Fragile X: No Anisha disease: No Other defects or genetic disorders: No Dating: RED of Estimated Date of Delivery: 10/28/24 based on [facility], uncertain LMP Review of Systems Constitutional: Negative. Respiratory: Negative. Cardiovascular: Negative. Gastrointestinal: Negative. Genitourinary: Negative. Musculoskeletal: Negative. Neurological: Negative. Psychiatric/Behavioral: Negative. Physical Exam There were no vitals taken for this visit. General: Healthy, alert, active, cooperative, and in no distress Lungs: Non-labored respirations The rest of the exam was deferred due to the consultative nature of this visit. Assessment: Ms. Crissy Reyes is a radha 28 y.o. at 8w1d here today for a consult regarding: Recommendations: Problem Pre-Existing Type 2 Diabetes Mellitus During in Third Trimester History Diagnosed age 28 History of DKA? no Last hemoglobin A1C: 7.7% on 03/2024, previous A1C 12.4% 11/2023 Pre- regimen: metformin 500mg TID Pre- TDD of insulin: 0 Pre- weight: 71kg Counseling Reviewed with patient that type 2 diabetes is the most common form of pregestational diabetes and is characterized by peripheral insulin resistance. is generally a state of increased insulin resistance, the one exception being late first trimester when relatively higher levels of estrogen may enhance insulin sensitivity and increase the maternal hypoglycemia, especially when associated with nausea and vomiting. As such, insulin requirements will likely change during and frequent monitoring throughout . This in combination with diabetic education, exercise, and diet control will be necessary to achieve optimal glycemic control. We reviewed that goal blood glucose values are generally fasting a premeal glucose of 95 mg/dL or less and 1 hour postprandial glucose of 140 mg/dL or less. We recommend checking blood sugar fasting, before each meal, and 1 hour after eating. The patient should also check urine ketones when their glucose level exceeds 200 mg/dL and should have glucagon available in case of hypoglycemic episodes. We also reviewed the increased maternal and risks associated with type 2 diabetes in . Discussed that major congenital anomalies (cardiac, neurologic and skeletal) are the leading cause of mortality in pregnancies complicated by diabetes and is directly related to hemoglobin A1C values. An A1c level of 10% is associated with a ~10% anomaly rate, and an A1c of 13% is associated with a ~20% anomaly rate. Other risks include large for gestational age or small for gestational age infants, delivery, and stillbirth. Maternal risks discussed include exacerbation of diabetes-related complications (particularly retinopathy and nephropathy), hypertensive disorders of , shoulder dystocia, and need for section. Also discussed that outcomes are best with optimal glycemic control. Lastly discussed that insulin drip will likely be required in labor. Plan - Current regimen: metformin 1000mg BID (increased 03/19) - Physician adjusting insulin dosage: MFM [x] Counseling performed 03/19/24 [] Diabetes education (ordered 03/19/24, requested insulin teaching in anticipation of needing) [x] Recommend weekly review of BG/insulin data to adjust insulin dosing (enrolled CC 03/19/24) [] Glucagon prescribed [] Annual comprehensive eye exam- last visit 2022, recommended patient make appt 03/19 [] Baseline CMP, UPC please obtain at primary office next visit [] A1c qTrimester [] First trimester TSH please obtain at primary office next visit [] ASA starting at 12 weeks gestation - rx sent 03/19 [] Please order patient for baseline EKG [] Specialized anatomy ultrasound at 18-20 weeks [] echocardiogram [] Serial growth scans starting at 24 weeks [] Twice weekly testing starting at 32 weeks [] insulin plan by 32 weeks [] Delivery at 39 0/7-39 6/7. (36 0/7 to 38 6/7 with vascular complications or poorly controlled) Supervision of High-Risk , First Trimester Will request records from primary OB for comanagement We have scheduled her to return in 4 weeks with a return visit and ultrasound. Thank you for the opportunity to be involved in the care of your patient. Should you have any further questions or concerns, please do not hesitate to call us. This was a telemedicine visit with Crissy Reyes which took place via Real- time video connection ([employer], [employer] or similar). During the visit, I was located in the office and the patient was located in the [facility] office in the [facility]. The patient visit started at 07:55 and ended at 08:25. My total encounter time on 03/19/24 was 50 minutes which was spent in the activities documented in the note. This includes time spent prior to the visit and after the visit in direct care of the patient. This time does not include time spent in any separately reportable services. The patient: has been informed that the visit may not be secure and acknowledged the information. After being given an opportunity to ask questions about and discuss this type of visit, they verbally consented to proceeding with the telephone/video visit and understand that this service replaces an office visit. Zahra Akhtar MD D PSYCHOMETRIST Last Filed Vital Signs Vital Sign Reading [...] st Contact Info) Description 10/28/2024 Hospital Encounter [facility] [address] [place] [address] Nichole Taylor MD [id number] [place] [address] Health Maintenance Due Date Last Done Comments Albumin Creatinine Ratio, Urine 1993 Cervical Cancer Screening 1993 Depression Screening 1993 Hepatitis C Screening 1993 eGFR 1993 Dilated Eye Exam 1993 Foot Exam 1993 Lipid Panel 1993 DTaP/Tdap/Td Vaccine (1 - Tdap) 2004 Varicella Vaccines (1 of 2 - 13+ 2-dose series) 2006 Hepatitis B Screening 09/27/2011 Regular Well Visit/Exam 18-64 09/27/2011 Pneumococcal vaccine <65 (1 of 2 - PCV) 2012 Influenza Vaccine (#1) 2024 Hemoglobin A1C 01/07/2025 07/08/2024 HPV Vaccines Aged Out No longer eligi ble based on patient's age to complete this topic Procedures Procedure Name Priority Date/Time Associated Diagnosis [...] motion, body motion,tone and amniotic fluid volume. us Georgina Mauricio INTERACTIVE ART DIRECTOR IMG OB US PROCEDURE S Final Result [...] volume. Fetus is cephalic; posterior placenta. Georgina Mauricio INTERACTIVE ART DIRECTOR IMG OB US PROCEDURE S Final Result [...] fluid 14.8 cm. Fetus iscephalic; posterior placenta. Georgina Mauricio NP IMG OB US PROCEDURE S Final Result * POCT glucose (07/20/2024 2:07 PM CDT) Glucose, POC 90 70 - 199 mg/dL Blood 07/20/2024 2:07 PM CDT 07/20/2024 2:07 PM CDT Result [facility] Nichole Taylor MD LAB POCT ORDERABLES - DRAGAN CE Final Result [facility] Department [place] [address] * (ABNORMAL) POCT urinalysis (Clinitek) (07/20/2024 2:01 PM CDT) Color, ur, POC Yellow Yellow Clarity, UA, POC Clear Clear [facility] Glucose, ur, POC Negative Negative [facility] Bilirubin, ur, POC Negative Negative [facility] Ketones, ur, POC Trace(A) Negative [facility] Specific gravity, ur, POC 1.020 1.010 - 1.025 [facility] Blood, ur, POC 3+(A) Negative [facility] pH, ur, POC 6.5 [facility] Comment: Interpretive Data Urine pH is affected by diet, medications, systemic acid-base disturbances, and renal tubular function. pH may affect urinary stone formation. For example, urine pH below 6.0 may help reduce the tendency for calcium phosphate stones and pH greater than 6.0 may reduce the tendency for uric acid stone formation. Source: [place]. Last Revised Date: 04-20-2017 Protein, ur, POC Negative Negative [facility] Urobilinogen, ur, POC 0.2 mg/dL mg/dL [facility] Nitrites, ur, POC Negative Negative [facility] Leukocyte esterase, ur, POC Negative Negative [facility] Urine 07/20/2024 2:01 PM CDT 07/20/2024 2:01 PM CDT Nichole Taylor MD LAB POCT ORDERABLES - DRAGAN CE Final Result [facility] [place] [address] * Hemoglobin A1c (07/08/2024 8:50 AM CDT) Hgb A1C 5.4 4.0 - 5.6 % Estimated Average Glucose 108 mg/dL [facility] Comment: The ADA recommends reporting an estimated Average Glucose (eAG) with all Hemoglobin A1c results using the equation derived from a study of 507 normal and diabetic adults. Minority populations were underrepresented and children were not included. (Diabetes Care 2020; 43(S1): S66-S76). The eAG is not equivalent to a fasting glucose. Blood 07/08/2024 8:50 AM CDT 07/08/2024 9:25 AM CDT us Georgina Mauricio NP LAB BLOOD ORDERABLE S Final Result Performing Organization Address City/State/[facility] Co de Phone Number [facility] [place] [address] from Last 3 Months or Most Recently Relevant to Health Maintenance Insurance [facility] H[facility] Address: [address] [address] [facility] [employer]/PPO Address: [id number] [place] [phone] Care Teams Fire Alarm Dispatcher Relationship Specialty Start Date End Date No, Physician PCP - General 02/01/24
--- OUTSIDE RECORDS SUMMARY | 2024-10-17 16:15 | XMS_ITS | Patient Health Record ---
Author Organization [facility] rafita Address [address] [place] [address] Care Team Providers Care Pattern Technician Name Role Phone Pedro Johnsonip Primary Care Provider [phone] Allergies Allergen (clinical drug ingredient) Drug/Non Drug Allergy documented on EMR Reaction Allergy Type Onset Date Status amoxicillin Amoxicillin Rasg Drug Allergy Act marilyn Reason For Referral No Information Medications Medication SIG (Take, Route, Frequency, Duration) Notes Start Date End Date Status metFORMIN HCl ER 500 MG 3 tablets with e vening meal Orally once a day; Duration: 30 days 02/06/2024 Active metFORMIN HCl ER 500 MG 2 tablets with e vening meal Orally Once a day; Duration: 30 days 12/19/2023 Not-Taking Accu-Chek Guide Test - as directed In Vitro; Duration: 90 days As needed 03/10/2024 Active Social History Tobacco Use: Social History Observation Description Date Details (start date - stop date) Never Smoker NA - NA Tobacco Control (Standard) Question Answer Notes Tobacco use: Nonsmoker Problems Problem Type SNOMED Code ICD Code Onset Dates Problem Status W/U Status Risk Notes Problem Type II diabetes mellitus without complication (738711361) Type 2 diabetes mellitus without complication, without long-term current use of insulin (E11.9) Active confirmed Vital Signs Heart Rate 75 /min 03/25/2024 Temperature 97.9 degrees Fahrenheit 03/25/2024 Blood pressure diastolic 72 mm Hg 03/25/2024 Oximetry 100 % 03/25/2024 Weight-kg 71.38 kg 03/25/2024 Blood pressure systolic 116 mm Hg 03/25/2024 Weight 157.4 lbs 03/25/2024 Encounters Encounter Location Date Provider Diagnosis [facility] [address] [place] [address] 12/05/2023 Yoshi Johsnon Abnormal blood chemistry test R79.9 [facility] [address] [place] [address] 01/08/2024 Yoshi Johnson Type 2 diabetes mellitus without complication, without long-term current use of insulin E11.9 [facility] [address] [place] [address] 03/25/2024 Yoshi Johnson First trimester Z34.91 and Type 2 diabetes mellitus without complication, without long-term current use of insulin E11.9 [facility] [address] [place] [address] 12/14/2023 [facility] Alex [facility] [address] [place] [address] 01/08/2024 [facility] [address] [place] [address] 02/06/2024 [facility] [address] [place] [address] 02/07/2024 [facility] [address] [place] [address] 02/07/2024 [facility] [address] [place] [address] 02/15/2024 Yoshi Johnson Assessments Encounter Date Diagnosis (ICD Code) Assessment Notes Treatment Notes Treatment Clinical Notes Section Notes 12/05/2023 Abnormal blood chemistry test (ICD-10 - R79.9) 01/08/2024 Type 2 diabetes mellitus without complication, without long-term current use of insulin (ICD-10 - E11.9) will send to freelance displayer, arrange for a home BS meter and strips. Likely will need a statin and ARB Counseling time 25 minutes 03/25/2024 Type 2 diabetes mellitus without complication, without long-term current use of insulin (ICD-10 - E11.9) cont high risk f/u with OB 03/25/2024 First trimester (ICD-10 - Z34.91) Plan Of Treatment Pending Test Test Name Order Date *UA with reflex to culture 12/05/2023 Basic Metabolic Panel 12/05/2023 C-Peptide 12/05/2023 Lipid Panel 12/05/2023 Insurance Providers Payer Name Payer Address Payer Phone Subscriber Number Group Number Insured Name Patient Relationship to Insured Coverage Start Date Coverage End Date [facility] [employer] [address] [address] [place] [address] [phone] [id number] Crissy Reyes Self - patient is the insured
[2024-10-17 16:38] VITALS: BP 143/89; PULSE 92
--- NOTE | 2024-10-17 16:40 | P.HP_ITS ---
H&P: HPI History of Present Illness Date/Time: 10/17/24 16:40 Chief Complaint: medical IOL Narrative: Crissy is a 29yo @ 39.0wks who presents for medical induction of labor due to Class B DM on insulin. She has been co-managed by [facility] and has been undergoing testing, which has been reassuring. Her is complicated by: - Class B DM; uncontrolled, A1c 12.4 (11/2023), repeat a1c 7.7 (03/2024) - MFM to manage; referred to disc sander: normal echo at 24-28wks, twice weekly NST/weekly BPP starting at 32wks. - On Metformin + Insulin; sugars controlled - Needs eye exam; 24 hour urine 140g/TSH normal - Rubella, CMV, Parvo non-immune - Mild rang BP on admission; PIH w/u pending Review of Systems Constitutional: Constitutional: Denies chills, Denies fever(s) and Denies headache(s) Eyes: Eyes: Denies change in vision ENT: Denies headache(s) Cardiovascular: Cardiovascular: Denies chest pain and Denies dyspnea Respiratory: Respiratory: Denies dyspnea Genitourinary: Genitourinary: Denies abnormal vaginal bleeding and Denies vaginal discharge Neurologic: Denies headache(s) Psychiatric: Psychiatric: Denies anxiety and Denies depression [facility] Past Medical History Medical History Type 2 diabetes mellitus Surgical History Surgical History History of placement of ear tubes Family History Family History Other Diabetes mellitus Hypertension Social History Social History Smoking status: Never smoker Alcohol intake: former Alcohol use details: socially Substance use: never Substance use type: does not use Do You Feel Safe in your Home?: Yes Lack of Transportation: No Lack of Food: Never True Current Housing: I Have Housing Concerned About Future Housing: No Difficulty Paying Gas/Electric Bills: No Difficulty Paying for Meds: No Currently Unemployed: No Education: Bachelor's Degree Difficulty w/ Childcare or Family Care: No Living arrangements: with family Additional living arrangements comments: Occupation/Education: occupation 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 [employer] Gender identity (if verbalized by the patient): Female Sexual Orientation (if Verbalized by the Patient): Straight or Heterosexual Spiritual care concerns: No Meds Home Medications and Allergies Home Medications ?Medication ?Instructions ?Recorded ?Confirmed ?Type aspirin 81 mg tablet,delayed 81 mg PO BID 04/24/24 10/16/24 History release blood-glucose sensor (Dexcom G7 #1 ea 04/24/24 10/15/24 History Sensor device) lancets (Accu-Chek Softclix #100 ea 04/24/24 10/15/24 History Lancets) pen needle, diabetic 32 gauge x #100 ea 04/24/24 10/15/24 History 1/4 (Droplet Pen Needle) insulin glargine 100 unit/mL (3 40 unit subcut HS 08/12/24 10/16/24 History mL) subcutaneous pen (Basaglar KwikPen U-100 Insulin) insulin lispro 100 unit/mL 14 unit subcut BIDWM 09/30/24 10/16/24 History subcutaneous pen metformin 1,000 mg tablet 1,000 mg PO BID 10/10/24 10/16/24 History vit no.95-ferrous 1 tablet PO DAILY 10/10/24 10/16/24 History fumarate 28 mg-folic acid 800 mcg tablet () Allergies Allergy/AdvReac Type Severity Reaction Status Date / Time amoxicillin (From Augmentin) Allergy Intermediate Rash Verified 10/16/24 11:14 clavulanic acid (From Allergy Intermediate Rash Verified 10/16/24 11:14 Augmentin) Vital Signs Vital Signs - 24 hr 10/17/24 16:38 Pulse Rate 92 Blood Pressure 143/89 H Exam Const: General: cooperative, healthy appearing, comfortable and no acute distress Orientation/consciousness: patient oriented x3 Resp: Effort & Inspection: normal respiratory effort Cardio: Rate: regular rate GI: GI Palp: No abdominal tenderness : Other: FHT's: 130's/ mod deysi/ + accels/ no decels - cat 1 TOCO: irregular ctxs Cervix: 1.5/30/-3 Membranes: intact Presentation: cephalic Skin: General skin exam: normal color Neuro: General: patient oriented x3 Extrem: General: normal to inspection Psych: Appearance: grossly normal Affect: normal affect Attitude: cooperative Assessment and Plan Assessment and plan (1) Modified White class B pregestational diabetes mellitus: Code(s): O24.319 - Unspecified pre-existing diabetes mellitus in , unspecified trimester Status: Acute Plan - Admitted for medical induction of labor; risks and benefits discussed - Cervidil tonight - High dose pitocin per protocol in AM with plans for AROM if cervix favorable - Continuous monitoring - GBS neg - Pt to get PM long acting insulin; BS q4h latent (goal <120, if abnormal sliding scale insulin and BS q1h), BS q2h in active labor - Anesthesia consult PRN pain - Monitor BPs; PIH w/u pending
[2024-10-17 16:45] VITALS: BP 147/86; PULSE 85
[2024-10-17 17:00] VITALS: BP 142/82; PULSE 81
[2024-10-17 17:08] VITALS: BMI 30.8
--- NOTE | 2024-10-17 17:08 | LDADM ---
This patient, Crissy Reyes, was admitted to Labor/Delivery/Recovery 106 on 10/17/24 at 16:08. Plans for labor, pain management and were discussed with patient. Patient/family oriented to hospital policies and general routines including ID bracelet, bed and alarms, visiting hours, pain management, procedures, bathroom and other care routines, personal items, smoking policy, room service/diet and guest tray routines, security routines, and visiting hours. Patient/Family are encouraged to report perceived risks to care and to ask questions if they do not understand what they are told or what they should do. See OBIX for further documentation.
[2024-10-17 17:09] LABS: Hematocrit 33.2 % (37.0-47.0); Hemoglobin 11.1 g/dL (12.0-15.0); Immature Granulocyte Percent A 0.5 % (0-0.5); Lymphocytes Absolute Auto 2.84 K/mm3 (0.9-3.2); Mean Corpuscular HGB Conc 33.4 g/dl (32-36); Mean Corpuscular Hemoglobin 30.2 pg (26-34); Mean Corpuscular Volume 90.2 fl (80-100); Nucleated Red Blood Cells Absolute Auto 0.000 K/mm3 (0.0-0.012); Nucleated Red Blood Cells Perc 0.0 % (0.0-0.2); Platelet Count Result 318 k/mm3 (150-375); Red Blood Count 3.68 M/mm3 (4.2-5.4); White Blood Count 11.1 K/mm3 (4.5-10.0)
[2024-10-17 17:15] VITALS: BP 153/88; PULSE 84
[2024-10-17 17:22] LABS: Alanine Aminotransferase 16 U/L (6-35); Albumin Level 4.1 g/dL (3.5-5.1); Alkaline Phosphatase 116 U/L (38-126); Anion Gap 12 mmol/L (4-12); Aspartate Amino Transferase 27 U/L (14-36); Bilirubin,Total 0.2 mg/dL (0.2-1.3); Blood Urea Nitrogen 15 mg/dL (7-17); Calcium 9.3 mg/dL (8.4-10.2); Carbon Dioxide 17 mmol/L (22-30); Chloride 108 mmol/L (98-107); Estimated CRCL calculation 99 ml/min; Estimated Glomerular Filt Rate > 60; Glucose 75 mg/dL (65-110); Potassium 4.1 mmol/L (3.4-5.0); Sodium 137 mmol/L (137-145); Total Protein 7.7 g/dL (6.3-8.2)
[2024-10-17 17:52] LABS: Syphilis IgG/IgM Antibody Non-Reactive (Nonreactive)
--- NOTE | 2024-10-17 18:06 | WPDANESEPP ---
Anes - Eval Pre Procedure Procedure: labor epidural Date/Time: 10/17/24 18:06 Surgeon: brooklynn Preop Diagnosis: pain during labor Pre Op Diagnosis: IOL Patient Data Age: 29 Gender: F Height: 1.57 m Weight: 76.5 kg Last Vital Signs Pulse 84 10/17/24 17:15 BP 153/88 H 10/17/24 17:15 O2 Del Method Room Air 10/17/24 17:08 Allergies Allergy/AdvReac Type Severity Reaction Status Date / Time amoxicillin (From Augmentin) Allergy Intermediate Rash Verified 10/16/24 11:14 clavulanic acid (From Allergy Intermediate Rash Verified 10/16/24 11:14 Augmentin) Home Medications ?Medication ?Instructions ?Recorded ?Confirmed ?Type aspirin 81 mg tablet,delayed 81 mg PO BID 04/24/24 10/16/24 History release blood-glucose sensor (Dexcom G7 #1 ea 04/24/24 10/15/24 History Sensor device) lancets (Accu-Chek Softclix #100 ea 04/24/24 10/15/24 History Lancets) pen needle, diabetic 32 gauge x #100 ea 04/24/24 10/15/24 History 1/4 (Droplet Pen Needle) insulin glargine 100 unit/mL (3 40 unit subcut HS 08/12/24 10/16/24 History mL) subcutaneous pen (Basaglar KwikPen U-100 Insulin) insulin lispro 100 unit/mL 14 unit subcut BIDWM 09/30/24 10/16/24 History subcutaneous pen metformin 1,000 mg tablet 1,000 mg PO BID 10/10/24 10/16/24 History vit no.95-ferrous 1 tablet PO DAILY 10/10/24 10/16/24 History fumarate 28 mg-folic acid 800 mcg tablet () Laboratory Tests 10/17/24 10/17/24 16:43 16:57 WBC 11.1 H K/mm3 (4.5-10.0) RBC 3.68 L M/mm3 (4.2-5.4) Hgb 11.1 L g/dL (12.0-15.0) Hct 33.2 L % (37.0-47.0) MCV 90.2 fl (80-100) MCH 30.2 pg (26-34) MCHC 33.4 g/dl (32-36) RDW 13.2 % (11.5-14.5) Plt Count 318 k/mm3 (150-375) MPV 10.8 H fl (7.4-10.4) Immature Gran % (Auto) 0.5 % (0-0.5) Neut % (Auto) 65.1 % (45.5-73.1) Lymph % (Auto) 25.7 % (18.3-44.2) [place] % (Auto) 6.8 % (2.6-8.5) Eos % (Auto) 1.6 % (0-4.4) Baso % (Auto) 0.3 % (0.2-1.2) Lymph # (Auto) 2.84 K/mm3 (0.9-3.2) [place] # (Auto) 0.8 H K/mm3 (0.1-0.6) Eos # (Auto) 0.2 K/mm3 (0-0.3) Baso # (Auto) 0.0 K/mm3 (0.0-0.1) Abs Immat Gran (auto) 0.05 H K/mm3 (0.00-0.031) Absolute Neuts (auto) 7.2 H K/mm3 (1.3-6.7) Absolute Nucleated RBC 0.000 K/mm3 (0.0-0.012) Nucleated RBC % 0.0 % (0.0-0.2) Sodium 137 mmol/L (137-145) Potassium 4.1 mmol/L (3.4-5.0) Chloride 108 H mmol/L (98-107) Carbon Dioxide 17 L mmol/L (22-30) Anion Gap 12 mmol/L (4-12) BUN 15 mg/dL (7-17) Creatinine 0.68 L mg/dL (0.7-1.0) Estim Creat Clear Calc 99 ml/min Estimated GFR > 60 (59 - ) Glucose 75 mg/dL (65-110) POC Capillary Glucose 73 mg/dl (65-105) Uric Acid Pending Calcium 9.3 mg/dL (8.4-10.2) Total Bilirubin 0.2 mg/dL (0.2-1.3) AST 27 U/L (14-36) ALT 16 U/L (6-35) Alkaline Phosphatase 116 U/L (38-126) Total Protein 7.7 g/dL (6.3-8.2) Albumin 4.1 g/dL (3.5-5.1) Syphilis IgG/IgM Ab Non-reactive (Nonreactive) HIV 1&2 Ab/P24 Ag 4thGn Pending Blood Type AB Positive Antibody Screen Negative Patient hx anesthesia problems: none Family hx anesthesia problems: none Results Review: All pre-operative results and documents have been reviewed as part of the pre-operative evaluation. FORMERLY [facility], [facility] Past Medical History Medical History (Updated 10/17/24 @ 18:07 by Juli Kaye CRNA) IUP (intrauterine ), incidental Type 2 diabetes mellitus Surgical History Surgical History History of placement of ear tubes Family History Family History Other Diabetes mellitus Hypertension Social History Social History Smoking status: Never smoker Alcohol intake: former Alcohol use details: socially Substance use: never Substance use type: does not use Do You Feel Safe in your Home?: Yes Lack of Transportation: No Lack of Food: Never True Current Housing: I Have Housing Concerned About Future Housing: No Difficulty Paying Gas/Electric Bills: No Difficulty Paying for Meds: No Currently Unemployed: No Education: Bachelor's Degree Difficulty w/ Childcare or Family Care: No Living arrangements: with family Additional living arrangements comments: Occupation/Education: occupation 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
[2024-10-17 18:15] LABS: HIV 1/2 Ab P24 Ag Result Negative (Negative)
[2024-10-17] MEDS: DINOPROSTONE 10 MG VAG INSERT VAGINAL (18:19)
[2024-10-17 18:36] LABS: Uric Acid 5.5 mg/dL (2.5-7.5)
[2024-10-17 21:49] VITALS: BMI 30.7
[2024-10-17 22:21] LABS: Total Protein Urine Random < 5 mg/dL; Ur Ttl Prot Creatinine Ratio < 0.04 mg/mg (0-0.20)
[2024-10-17 22:49] VITALS: RESP 16; TEMP 36.8
[2024-10-17] MEDS: INSULIN GLARGINE (*BKC) 100 UNITS/ML 40 UNITS SUB-Q (22:54)
[2024-10-17 22:57] VITALS: BP 138/82; PULSE 68
[2024-10-18] VITALS (234 sets, daily range): BP systolic 102–164; BP diastolic 39–131; PULSE 62–207; RESP 15–20; TEMP 36.3–38.1; O2SAT 96–100
[2024-10-18] MEDS: LACTATED RINGERS 1,000 ML 125 ML IV CONT ×3 (07:03→16:54)
[2024-10-18] MEDS: OXYTOCIN 30 UNITS/NS 500 ML 30 UNITS/500 ML BAG 6 UNITS IV CONT (07:03)
--- NOTE | 2024-10-18 07:24 | PM.OBPNLAB ---
Pain Control Date/time seen: 10/18/24 07:06 Pain control: tolerating well Pelvic Exam Dilation (cm): 2 Effacement (%): 70 station: -2 Amniotic membrane status: Ruptured (clear 0722) Contractions Monitor mode: External Contraction frequency: 2 (-4) Status status: Category l Assessment and Plan Assessment: induction ongoing Plan: continuous present management
[2024-10-18] MEDS: fentaNYL CITRATE INJ (*CRX) 100 MCG/2 ML VIAL IV PUSH (08:16)
[2024-10-18 09:53] LABS: Add Urine Microscopic? YES; Appearance Urine Clear (Clear); Glucose Urine UA Negative (Negative); Leukocyte Esterase Ur Negative LEU/UL (Negative); Nitrate Urine Negative (Negative); Non Pathogenic Casts 0-2; Specific Grav Ur 1.028 (1.001-1.035)
--- NOTE | 2024-10-18 12:27 | PM.OBPNLAB ---
Pain Control Date/time seen: 10/18/24 12:27 Pain control: epidural Pelvic Exam Dilation (cm): 5 Effacement (%): 80 station: -2 Amniotic membrane status: Ruptured (clear 0722) Contractions Monitor mode: External Contraction frequency: 2 (-3) Status status: Category l Assessment and Plan Pitocin rate (mU/min): 18 Assessment: induction ongoing Plan: continuous present management
[2024-10-18] MEDS: DEXTROSE 5%/LACTATED RINGERS 1,000 ML 50 ML IV CONT (16:54)
[2024-10-18] MEDS: ACETAMINOPHEN 500 MG TABLET 1000 MG PO (19:19)
[2024-10-18] MEDS: GENTAMICIN SULFATE INJ 380 MG in DEXTROSE 5% 100 ML 100 MG IVPB (19:44)
[2024-10-18] MEDS: VANCOMYCIN 1,500 MG/NS 500 ML BAG 250 MG IVPB (20:50)
--- NOTE | 2024-10-18 20:55 | PM.OBPNLAB ---
Pain Control Date/time seen: 10/18/24 20:55 Pain control: epidural Pelvic Exam Dilation (cm): 7 Effacement (%): 70 station: -2 Amniotic membrane status: Ruptured (clear 0722) Contractions Monitor mode: External Contraction frequency: 2 (-3) Status status: Category ll Comments: recurrent variable decels; good variability though Assessment and Plan Plan: Comments: - Pt has had adequate contractions over 4 hours with no change in cervical exam; remains 7cm with now an edematous cervix; meeting criteria for arrest of active phase. Risks and benefits discussed in detail - Also has been diagnosed with chorio; on vanco 1.5g q12h, gentamicin 5mg/kg q24-- will add in clindamycin 900mg q8 and give azithromycin 500mg once
[2024-10-18] MEDS: ONDANSETRON INJ 4 MG/2 ML VIAL IV PUSH (21:10)
[2024-10-18] MEDS: FAMOTIDINE 20 MG/2 ML VIAL IV PUSH (21:11)
--- NOTE | 2024-10-18 21:11 | WPDHPUPDATE1 ---
History and Physical Update Update Date/Time: 10/18/24 21:11 History and Physical has been reviewed, including an updated exam of the patient. There are NO changes in the patient's condition. Risks, benefits, and alternatives have been discussed and questions answered. Patient agrees to proceed with procedure.
[2024-10-18] MEDS: AZITHROMYCIN IV 500 MG in SODIUM CHLORIDE 0.9% IV 250 ML IVPB (21:40)
[2024-10-18] MEDS: CLINDAMYCIN 900 MG/D5W 50 ML 900 MG/50 ML PIGGYBACK 50 MG IVPB (21:41)
--- NOTE | 2024-10-18 21:42 | S_PTH ---
PATIENT: Crissy Reyes LOC: ANHOB2 U#:[id number] AGE/SX: 29/F ROOM: 288 RE10/17/[address]: Alejandra Bishop MD : 1995 BED: 00 DIS: 10/21/2024 SPEC #: [id number] RECD: 10/21/24 08:21 STATUS: GEETA REQ #: [id number] BECKY: 10/18/24 21:[address]: Alejandra Bishop DEPT: [facility] Surgical RECD BY: Christina Beatty Tissues: A - Placenta Procedures: Hematoxylin and Eosin Stain Gross and Microscopic Level 5
--- NOTE | 2024-10-18 22:20 | P.PCNOB_ITS ---
OB - Delivery Note Procedure Delivery date: 10/18/24 Pre-op diagnosis: Arrest of Dilation, Chorioamniontis, Diabetes Mellitus (Class B on DM) and Gestational Hypertension Post-op Diagnosis: Same Induction method: Per Cervidil Protocol Delivery augmentation: Rupture of Membranes and Pitocin Delivery monitor: External FHT and Internal Uterine Prior to decision for section, ACOG/SM labor guidelines were considered and discussed with the patient and staff. Decision made to proceed with the section.: Yes Procedure Performed: Primary Primary branch: low cervical, transverse Surgeon: Alejandra Bishop MD Anesthesia type: Epidural Description of Procedure/Findings: Male , ROT/OP, nuchal x1 reduced, clear fluid, normal tubes/ovaries bilaterally. Good hemostasis at end of case. Specimen: Yes (placenta) Estimated Blood Loss: 410 Drains: No Packing: No Pathology: Yes Complications: No immediate complications Condition: Stable Disposition: Floor [place] Baby Date of : 10/18/24 Time of : 21:40 Gestational Age by Date: 39 (.1) gender: Male Weight (pounds): 6 Weight (ounces): 14 presentation: vertex position: Right Occiput Transverse (/OP) Placenta delivery description: Expressed Cord Vessel Description: 3 Vessels, Nuchal Cord, Loose and Reduced score one minute: 8 score five minutes: 9 Narrative: Crissy was counseled on all risks and benefits in detail. She was taken to the operating room where epidural was found to be adeuquate. She was then prepped and draped in the normal sterile fashion. She received vancomycin 1.5g, azithromycin 500mg, gentamicin 5mg/kg, and clindamycin 900mg and a time out was performed. A Pfannenstiel incision was made in the skin and carried down to the underlying fascia. The fascia was nicked on either side of the midline and the fascial incision was extended laterally and superiorly using curved Perkins scissors. The fascia was then elevated using Ester clamps and the underlying rectus muscles were dissected off the fascia, superiorly and inferiorly. The rectus muscles were then in the midline and the peritoneum was entered bluntly. Once adequate exposure was obtained, a Mobius self retractor was placed within the abdomen. A bladder flap was created. A low transverse incision was made on the lower uterine segment and clear fluid was noted. The occiput was easily brought to the hysterotomy and the head was delivered without complication. Nuchal cord was noted and reduced. The shoulders and body then followed without complications. The infant had spontaneous cry and the mouth was bulb suctioned. The cord was clamped and cut and the was handed off to the awaiting pediatric nurse. A segment of the cord was collected for cord gases. The remaining cord blood was collected for typing. With Pitoci n infusing, the placenta delivered with gentle traction on the cord without complications. The uterus was then cleared out of all clots and debris using a clean, moist lap. The hysterotomy was then repaired in a running, interlocking fashion using 0 Vicryl. A second layer imbricating suture was then made using 0 Vicryl. The hysterotomy was found to be hemostatic and good uterine tone was noted. The bilateral adnexa were examined and found to be normal. The pelvis was cleared of all clots and fluid. The Mobius retractor was removed from the abdomen. The peritoneum, muscle, and fascia were examined and made hemostatic with Bovie cautery. The fascia was then repaired using a 0 Vicryl suture in a running fashion. The subcutaneous tissue was then irrigated and made hemostatic with Bovie cautery. The subcutaneous tissue was then reapproximated using 2-0 Vicryl. The skin was then closed using 4-0 Monocryl in a running subcuticular fashion. A Mepilex dressing was placed over the incision. Sponge, lap, needle and instrument counts were correct at the end of the procedure x2. The patient tolerated the procedure well and was taken to recovery in a stable condition.
[2024-10-19] VITALS (9 sets, daily range): BP systolic 112–142; BP diastolic 70–92; PULSE 72–105; RESP 14–16; TEMP 36.6–37.2; O2SAT 97–100
[2024-10-19] MEDS: LIDOCAINE 2% PF LOCAL INJ 5 ML VIAL 10 ML (01:41)
[2024-10-19] MEDS: ACETAMINOPHEN 500 MG TABLET 1000 MG PO ×5 (01:42→20:20)
[2024-10-19] MEDS: KETOROLAC 15 MG/ML VIAL (*BKC) IV PUSH ×3 (01:42→14:08)
[2024-10-19 07:07] LABS: Hematocrit 28.3 % (37.0-47.0); Hemoglobin 9.2 g/dL (12.0-15.0); Immature Granulocyte Percent A 0.6 % (0-0.5); Lymphocytes Absolute Auto 2.13 K/mm3 (0.9-3.2); Mean Corpuscular HGB Conc 32.5 g/dl (32-36); Mean Corpuscular Hemoglobin 30.1 pg (26-34); Mean Corpuscular Volume 92.5 fl (80-100); Nucleated Red Blood Cells Absolute Auto 0.000 K/mm3 (0.0-0.012); Nucleated Red Blood Cells Perc 0.0 % (0.0-0.2); Platelet Count Result 215 k/mm3 (150-375); Red Blood Count 3.06 M/mm3 (4.2-5.4); White Blood Count 17.3 K/mm3 (4.5-10.0)
[2024-10-19 07:19] LABS: Alanine Aminotransferase 12 U/L (6-35); Albumin Level 2.9 g/dL (3.5-5.1); Alkaline Phosphatase 75 U/L (38-126); Anion Gap 5 mmol/L (4-12); Aspartate Amino Transferase 27 U/L (14-36); Bilirubin,Total 0.4 mg/dL (0.2-1.3); Blood Urea Nitrogen 7 mg/dL (7-17); Calcium 8.3 mg/dL (8.4-10.2); Carbon Dioxide 19 mmol/L (22-30); Chloride 108 mmol/L (98-107); Estimated CRCL calculation 104 ml/min; Estimated Glomerular Filt Rate > 60; Glucose 91 mg/dL (65-110); Potassium 3.9 mmol/L (3.4-5.0); Sodium 132 mmol/L (137-145); Total Protein 5.6 g/dL (6.3-8.2)
[2024-10-19] MEDS: SIMETHICONE 80 MG TAB.CHEW PO ×3 (07:53→17:32)
[2024-10-19] MEDS: LIDOCAINE 5% PATCH 1 PATCH TRANSDERM ×2 (07:54→19:00)
--- NOTE | 2024-10-19 08:06 | P.PNOB_ITS ---
OB - PN: Subj Subjective Date/time seen: 10/19/24 08:06 Narrative: POD#1 Crissy reports doing well today. Her bleeding is wilderness guide. Her pain is controlled. She is tolerating regular diet, passing gas. Lindsay catheter is in place. She has sat up in a chair, not ambulated. She denies any issues with her incision. She is breast feeding. She would like her son circumcised. OB - PN: Obj Data Labs 10/19/24 07:03 10/19/24 07:03 Labs: Laboratory Results - last 24 hr 10/17/24 10/18/24 10/18/24 21:54 10:10 13:58 WBC RBC Hgb Hct MCV MCH MCHC RDW Plt Count MPV Immature Gran % (Auto) Neut % (Auto) Lymph % (Auto) [place] % (Auto) Eos % (Auto) Baso % (Auto) Lymph # (Auto) [place] # (Auto) Eos # (Auto) Baso # (Auto) Abs Immat Gran (auto) Absolute Neuts (auto) Absolute Nucleated RBC Nucleated RBC % Sodium Potassium Chloride Carbon Dioxide Anion Gap BUN Creatinine Estim Creat Clear Calc Estimated GFR Glucose POC Capillary Glucose 89 65 Calcium Total Bilirubin AST ALT Alkaline Phosphatase Total Protein Albumin Urine Color Yellow Urine Appearance Clear Urine pH 6.5 Ur Specific [place] 1.028 Urine Protein Trace Urine Glucose (UA) Negative Urine Ketones 1+ H Ur Blood (Man) Negative Urine Nitrate Negative Urine Bilirubin Negative Urine Urobilinogen 1.0 Leukocyte Esterase Rfl Negative Urine RBC 0-2 Urine WBC 0-5 Ur Squamous Epith Cells None seen Urine Bacteria None seen Urine Casts 0-2 10/18/24 10/18/24 10/18/24 15:49 16:33 17:36 WBC RBC Hgb Hct MCV MCH MCHC RDW Plt Count MPV Immature Gran % (Auto) Neut % (Auto) Lymph % (Auto) [place] % (Auto) Eos % (Auto) Baso % (Auto) Lymph # (Auto) [place] # (Auto) Eos # (Auto) Baso # (Auto) Abs Immat Gran (auto) Absolute Neuts (auto) Absolute Nucleated RBC Nucleated RBC % Sodium Potassium Chloride Carbon Dioxide Anion Gap BUN Creatinine Estim Creat Clear Calc Estimated GFR Glucose POC Capillary Glucose 59 L* 60 L 87 Calcium Total Bilirubin AST ALT Alkaline Phosphatase Total Protein Albumin Urine Color Urine Appearance Urine pH Ur Specific [place] Urine Protein Urine Glucose (UA) Urine Ketones Ur Blood (Man) Urine Nitrate Urine Bilirubin Urine Urobilinogen Leukocyte Esterase Rfl Urine RBC Urine WBC Ur Squamous Epith Cells Urine Bacteria Urine Casts 10/18/24 10/18/24 10/18/24 18:48 20:38 23:42 WBC RBC Hgb Hct MCV MCH MCHC RDW Plt Count MPV Immature Gran % (Auto) Neut % (Auto) Lymph % (Auto) [place] % (Auto) Eos % (Auto) Baso % (Auto) Lymph # (Auto) [place] # (Auto) Eos # (Auto) Baso # (Auto) Abs Immat Gran (auto) Absolute Neuts (auto) Absolute Nucleated RBC Nucleated RBC % Sodium Potassium Chloride Carbon Dioxide Anion Gap BUN Creatinine Estim Creat Clear Calc Estimated GFR Glucose POC Capillary Glucose 86 109 H 107 H Calcium Total Bilirubin AST ALT Alkaline Phosphatase Total Protein Albumin Urine Color Urine Appearance Urine pH Ur Specific [place] Urine Protein Urine Glucose (UA) Urine Ketones Ur Blood (Man) Urine Nitrate Urine Bilirubin Urine Urobilinogen Leukocyte Esterase Rfl Urine RBC Urine WBC Ur Squamous Epith Cells Urine Bacteria Urine Casts 10/19/24 07:03 WBC 17.3 H RBC 3.06 L Hgb 9.2 L Hct 28.3 L MCV 92.5 MCH 30.1 MCHC 32.5 RDW 13.4 Plt Count 215 MPV 10.8 H Immature Gran % (Auto) 0.6 H Neut % (Auto) 80.2 H Lymph % (Auto) 12.3 L [place] % (Auto) 6.1 Eos % (Auto) 0.6 Baso % (Auto) 0.2 Lymph # (Auto) 2.13 [place] # (Auto) 1.1 H Eos # (Auto) 0.1 Baso # (Auto) 0.0 Abs Immat Gran (auto) 0.10 H Absolute Neuts (auto) 13.9 H Absolute Nucleated RBC 0.000 Nucleated RBC % 0.0 Sodium 132 L Potassium 3.9 Chloride 108 H Carbon Dioxide 19 L Anion Gap 5 BUN 7 D Creatinine 0.64 L Estim Creat Clear Calc 104 Estimated GFR > 60 Glucose 91 POC Capillary Glucose Calcium 8.3 L Total Bilirubin 0.4 AST 27 ALT 12 Alkaline Phosphatase 75 Total Protein 5.6 L Albumin 2.9 L Urine Color Urine Appearance Urine pH Ur Specific [place] Urine Protein Urine Glucose (UA) Urine Ketones Ur Blood (Man) Urine Nitrate Urine Bilirubin Urine Urobilinogen Leukocyte Esterase Rfl Urine RBC Urine WBC Ur Squamous Epith Cells Urine Bacteria Urine Casts OB - PN A/P Assessment and Plan (1) S/P section: Code(s): Z98.891 - History of uterine scar from previous surgery Status: Acute (2) Gestational hypertension: Qualifiers: Trimester: third trimester Qualified Code(s): O13.3 - Gestational [-induced] hypertension without significant proteinuria, third trimester Code(s): O13.9 - Gestational [-induced] hypertension without significant proteinuria, unspecified trimester Status: Acute (3) Chorioamnionitis: Qualifiers: Fetus number: single or unspecified fetus Trimester: third trimester Q ualified Code(s): O41.1230 - Chorioamnionitis, third trimester, not applicable or unspecified Code(s): O41.1290 - Chorioamnionitis, unspecified trimester, not applicable or unspecified Status: Acute Plan day: 1 Plan: routine care Comments: - PO pain meds - Regular diet - Ambulation and hydration encouraged - Chorio: vanco 1.5g q12h, clinda 900mg q8h, gentamicin 5mg/kg x24 hr -- continue for 24 hours post-op - GHTN; BPs in normal/mild range, will continue to monitor - Class B DM: BS AC/HS, will half long acting insulin 20u, continue metformin Time Spent With Patient Time: Total time spent is greater than 50% in coordination of care (as documented) at patient's floor/unit and/or counseling patient: Review of Systems 2 Constitutional: Constitutional: Denies chills, Denies fever(s) and Denies headache(s) Eyes: Eyes: Denies change in vision ENT: Denies dizziness and Denies headache(s) Cardiovascular: Cardiovascular: Denies chest pain, Denies palpitations and Denies dyspnea Respiratory: Respiratory: Denies cough and Denies dyspnea Gastrointestinal: Gastrointestinal: Denies nausea and Denies vomiting Genitourinary: Comments: normal bleeding Neurologic: Denies dizziness and Denies headache(s) Endocrine: Endocrine: Denies palpitations Exam 2 Const: General: cooperative, comfortable, no acute distress and obese O rientation/consciousness: patient oriented x3 Resp: Effort & Inspection: normal respiratory effort Auscultation: clear to auscultation bilaterally Cardio: Rate: regular rate GI: Inspection: non-distended and incision (covered with clean dressing) GI Palp: Yes abdominal tenderness (appropriate) and Yes Soft to palpation A uscultation: normal bowel sounds : Other: fundus firm Urinary Catheter: Urinary Catheter: patent and draining Skin: General skin exam: normal color Neuro: General: patient oriented x3 Extrem: General: normal to inspection Psych: Appearance: grossly normal Affect: normal affect Attitude: c ooperative
[2024-10-19] MEDS: MULTIVIT/MIN/PREN/FOL AC/IRON TABLET 1 TAB PO (08:41)
[2024-10-19] MEDS: DOCUSATE SODIUM 100 MG CAPSULE PO ×2 (08:41→17:32)
[2024-10-19] MEDS: CLINDAMYCIN 900 MG/D5W 50 ML 900 MG/50 ML PIGGYBACK 50 MG IVPB ×2 (08:52→16:25)
[2024-10-19] MEDS: VANCOMYCIN 1,500 MG/NS 500 ML BAG 250 MG IVPB (09:48)
--- NOTE | 2024-10-19 09:55 | WPDANLDPN2 ---
Anes-Prog Note L&D Date/Time: 10/19/24 09:55 Comfortable throughout: labor, delivery and section Neuraxial method: epidural Epidural/Spinal procedure site: clean & non-tender Neuro status: Neuro function grossly intact. Cardiovascular status: normal Respiratory status: normal Airway patency: baseline Mental status: baseline Post-Op hydration status: normal Vital Signs: Last Vital Signs Temp 36.7 C 10/19/24 08:07 Pulse 73 10/19/24 08:07 Resp 16 10/19/24 08:07 BP 134/75 10/19/24 08:07 Pulse Ox 97 10/19/24 08:07 O2 Del Method Room Air 10/18/24 23:05 Pain score (VAS): 1 I/O: Intake & Output 10/18/24 10/19/24 10/19/24 23:59 07:59 15:59 Intake Total 1000 300 Output Total 860 710 Balance 140 -410 Post-procedural complaints: none Patient feedback: Patient satisfied with anesthetic care.
--- NOTE | 2024-10-19 09:55 | WPDANLDNPN2 ---
Anes-Prog Note L&D-Neuraxial Date/Time: 10/19/24 09:55 Neuraxial medications: epidural PF morphine Opiod-related complaints: none Patient feedback: Patient satisfied with post-operative pain management.
--- NOTE | 2024-10-19 10:00 | PC.NURSE ---
Patient has baby skin to skin and is ready to attempt to feed. Baby is very alert and rooting. We moved him to the right breast in a laid back position. He was able to latch easily multiple times. Mom was feeling soreness/pinching so we tried to adjust the latch several times without results. We moved him to football hold which has worked at previous feedings. Mom does state that she continues to feel soreness. lips are flanged and gape >120 degrees. Tongue appears to be down and cupped under the breast. Mom has a scab on the left nipple face. We reviewed how baby can slip and have a shallow latch at the end of the feeding which can cause nipple trauma/soreness. We will work today to ensure we do not create further nipple damage and will use the nipple shield if needed (shield given at first feeding, not used at this feeding). Mom is encouraged to call out for any assistance or with switching infant to the other breast. Patient agrees. RN updated.
--- NOTE | 2024-10-19 15:20 | PC.NURSE ---
Mother called for feeding assistance. Baby is skin to skin and alert. We first tried a laid back position on the left breast. Baby made good effort but positioning was awkward so we chose to try football hold. Baby opens with a wide gape and is easily brought in to latch. He will suckle a few times and then pushes off of the breast. He has been supplemented with formula due to low blood glucose. Mother asks if this could be causing him not to latch as well. We reviewed that he can learn two things, it just takes practice. He did begin suckling for longer bursts as mom worked with him. She is encouraged to call out for assistance switching to the right breast if needed. It was recommended that mom continue supplementation due to low glucose, so mom is counselled to allow baby to breastfeed as long as desired before offering the formula supplement. Mom agrees to this plan and works very well with baby. Primary RN updated.
[2024-10-19] MEDS: IBUPROFEN 600 MG TABLET PO (20:21)
[2024-10-20] MEDS: ACETAMINOPHEN 500 MG TABLET 1000 MG PO ×4 (01:35→20:40)
[2024-10-20] MEDS: IBUPROFEN 600 MG TABLET PO ×4 (01:35→20:40)
[2024-10-20] MEDS: oxyCODONE HCL (*CRX) 5 MG TAB IR PO ×2 (05:31→14:40)
[2024-10-20 05:32] VITALS: BP 114/72; PULSE 85; RESP 14; TEMP 36.8; O2SAT 100
[2024-10-20 05:34] LABS: Hematocrit 28.3 % (37.0-47.0); Hemoglobin 9.1 g/dL (12.0-15.0); Mean Corpuscular HGB Conc 32.2 g/dl (32-36); Mean Corpuscular Hemoglobin 29.6 pg (26-34); Mean Corpuscular Volume 92.2 fl (80-100); Platelet Count Result 230 k/mm3 (150-375); Red Blood Count 3.07 M/mm3 (4.2-5.4); White Blood Count 16.9 K/mm3 (4.5-10.0)
[2024-10-20 07:40] VITALS: BP 130/82; PULSE 64; RESP 16; TEMP 36.7; O2SAT 100
[2024-10-20] MEDS: SIMETHICONE 80 MG TAB.CHEW PO ×3 (07:40→17:38)
--- NOTE | 2024-10-20 08:19 | PM.OBPNVD ---
OB - PN: Subj Subjective Date/time seen: 10/20/24 08:19 Narrative: POD#2 Crissy reports doing well today. 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 Her pain is controlled. She is tolerating regular diet, voiding, passing gas, and ambulating without issues. She denies any issues with her incision. She is breast/bottle feeding. She would like her son circumcised. OB - PN: Obj Data Labs 10/20/24 05:23 10/19/24 07:03 Labs: Laboratory Results - last 24 hr 10/19/24 10/19/24 10/19/24 13:03 18:35 22:46 WBC RBC Hgb Hct MCV MCH MCHC RDW Plt Count MPV POC Capillary Glucose 87 68 87 10/20/24 05:23 WBC 16.9 H RBC 3.07 L Hgb 9.1 L Hct 28.3 L MCV 92.2 MCH 29.6 MCHC 32.2 RDW 13.4 Plt Count 230 MPV 11.0 H POC Capillary Glucose OB - PN A/P Assessment and Plan (1) S/P section: Code(s): Z98.891 - History of uterine scar from previous surgery Status: Acute (2) Type 2 diabetes mellitus: Code(s): E11.9 - Type 2 diabetes mellitus without complications Status: Acute (3) Chorioamnionitis: Qualifiers: Fetus number: single or unspecified fetus Trimester: third trimester Qualified Code(s): O41.1230 - Chorioamnionitis, third trimester, not applicable or unspecified Code(s): O41.1290 - Chorioamnionitis, unspecified trimester, not applicable or unspecified Status: Acute Plan day: 2 Plan: routine care Comments: - PO pain meds - Regular diet - Ambulation and hydration encouraged - Chorio: s/p vanco 1.5g q12h, clinda 900mg q8h, gentamicin 5mg/kg x24 hr for 24 hours -- decrease in wbc, afebrile - GHTN; BPs in normal/mild range, will continue to monitor - Class B DM: BS AC/HS, sugars have been on the lower side will d/c long acting insulin (held overnight); continue metformin 1000mg BID (do not hold for low sugars) - Circ performed without issue Time Spent With Patient Time: Total time spent is greater than 50% in coordination of care (as documented) at patient's floor/unit and/or counseling patient: Review of Systems Constitutional: Constitutional: Denies chills, Denies fever(s) and Denies headache(s) Eyes: Eyes: Denies change in vision ENT: Denies dizziness and Denies headache(s) Cardiovascular: Cardiovascular: Denies chest pain, Denies palpitations and Denies dyspnea Respiratory: Respiratory: Denies cough and Denies dyspnea Gastrointestinal: Gastrointestinal: Denies nausea and Denies vomiting Genitourinary: Comments: normal bleeding Neurologic: Denies dizziness and Denies headache(s) Endocrine: Endocrine: Denies palpitations Exam Const: General: cooperative, comfortable and no acute distress Orientation/consciousness: patient oriented x3 Resp: Effort & Inspection: normal respiratory effort Auscultation: clear to auscultation bilaterally Cardio: Rate: regular rate GI: Inspection: non-distended and incision (covered with clean dressing) GI Palp: Yes abdominal tenderness (appropriate) and Yes Soft to palpation Auscultation: normal bowel sounds : Other: fundus firm Skin: General skin exam: normal color Neuro: General: patient oriented x3 Extrem: General: normal to inspection Psych: Appearance: grossly normal Affect: normal affect Attitude: cooperative
[2024-10-20] MEDS: DOCUSATE SODIUM 100 MG CAPSULE PO ×2 (09:45→17:38)
[2024-10-20] MEDS: MULTIVIT/MIN/PREN/FOL AC/IRON TABLET 1 TAB PO (09:45)
[2024-10-20] MEDS: LIDOCAINE 5% PATCH 1 PATCH TRANSDERM (14:00)
[2024-10-20 20:41] VITALS: BP 130/81; PULSE 76; RESP 18; TEMP 37.1; O2SAT 100
[2024-10-21] MEDS: IBUPROFEN 600 MG TABLET PO ×2 (01:40→07:54)
[2024-10-21] MEDS: ACETAMINOPHEN 500 MG TABLET 1000 MG PO ×2 (01:40→07:55)
--- NOTE | 2024-10-21 07:18 | P.DS_ITS ---
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.1 - Secondary uterine inertia Status: Acute (2) Modified White class B pregestational diabetes mellitus: Code(s): O24.319 - Unspecified pre-existing diabetes mellitus in , unspecified trimester Status: Acute (3) S/P section: Code(s): Z98.891 - History of uterine scar from previous surgery Status: Acute (4) Chorioamnionitis: Qualifiers: Fetus number: single or unspecified fetus Trimester: third trimester Qualified Code(s): O41.1230 - Chorioamnionitis, third trimester, not applicable or unspecified Code(s): O41.1290 - Chorioamnionitis, unspecified trimester, not applicable or unspecified Status: Acute OB - DS: Summary OB Procedures : NST and Ultrasound OB Procedures Intrapartum: low cervical, transverse OB Procedures: : Antibiotics and Rubella lg Peripartum Data Infant Delivery Method: Section Procedures: Procedures Operation Date: 10/18/24 21:15 Actual Procedure Side Surgeon p Section Bilateral Alejandra Bishop MD [place] 1: Gender: Male Disposition of : home Status at Discharge Functional status at discharge: independent ambulation Overall status at discharge: patient is back to baseline Time Spent with Patient Time attestation: Total time spent providing and/or coordinating discharge services: Exam Const: General: cooperative, comfortable, no acute distress and overweight Orientation/consciousness: patient oriented x3 Resp: Effort & Inspection: normal respiratory effort Auscultation: clear to auscultation bilaterally Cardio: Rate: regular rate GI: Inspection: non-distended and incision (covered with clean dressing ) GI Palp: No abdominal tenderness and Yes Soft to palpation Auscultation: normal bowel sounds : Other: fundus firm Skin: General skin exam: normal color Neuro: General: patient oriented x3 Extrem: General: normal to inspection Psych: Appearance: grossly normal Affect: normal affect Attitude: cooperative DS: Data Data Completed and Pending Pending studies at discharge: Pending at discharge 10/18/24 21:42 Surgical [PTH] Routine 10/18/24 22:32 Surgical [PTH] Routine Labs on day of discharge: Labs from last 24 hours 10/20/24 10/20/24 10/20/24 20:48 17:37 12:44 WBC RBC Hgb Hct MCV MCH MCHC RDW Plt Count MPV POC Capillary Glucose 118 H 83 70 10/20/24 10/20/24 10/19/24 08:22 05:23 22:46 WBC 16.9 H RBC 3.07 L Hgb 9.1 L Hct 28.3 L MCV 92.2 MCH 29.6 MCHC 32.2 RDW 13.4 Plt Count 230 MPV 11.0 H POC Capillary Glucose 64 L 87 Discharge Plan Discharge Attending physician on discharge: Alejandra Bishop Discharging Clinician: Alejandra Bishop Anticipated Discharge Date/Time: 10/21/24 10:00 Patient Disposition: Home Activity: may shower and pelvic rest Diet: diabetic Discharge Instructions: Remove dressing on 10/24/24 No lifting over 15 pounds for 6wks No baths/pools for 4wks Call office/go to ER with golf ball sized clots or fevers above 100.4F Patient Instructions: (DC) Patient Language: [place] Zealander Stand Alone Forms: General Discharge Information Follow-up/Referrals: Alejandra Bishop MD [Physician] - 4 Weeks Discharge Medications: New polysaccharide iron complex 150 mg iron Capsule 150 mg PO DAILY Qty: 90 0RF docusate sodium 100 mg Capsule 100 mg PO BID Qty: 90 0RF ibuprofen 600 mg Tablet 600 mg PO Q6HR Qty: 40 0RF acetaminophen 500 mg Tablet 1,000 mg PO Q6HR Qty: 60 0RF oxycodone 5 mg Tablet 5 mg PO Q4H PRN (Reason: Pain Rated 4-6) Qty: 15 0RF Continued PNV no.95-ferrous fumarate-FA [] 28 mg iron- 800 mcg tablet 1 tablet PO DAILY metformin 1,000 mg tablet 1,000 mg PO BID Qty: 90 6RF Patient Comments: Takes after breakfast and before bedtime Discontinued (DME) pen needle, diabetic [Droplet Pen Needle] 32 gauge x 1/4 needle See Rx Instructions .ROUTE .MEDSUPPLY Qty: 100 Rx Instructions: As directed (DME) lancets [Accu-Chek Softclix Lancets] Misc See Rx Instructions .ROUTE .MEDSUPPLY Qty: 100 Rx Instructions: As directed (DME) Dexcom G7 Sensor Device See Rx Instructions .ROUTE .MEDSUPPLY Qty: 1 Rx Instructions: As directed aspirin 81 mg tablet,delayed release (DR/EC) 81 mg PO BID insulin glargine [Basaglar KwikPen U-100 Insulin] 100 unit/mL (3 mL) insulin pen 40 unit subcut HS insulin lispro 100 unit/mL insulin pen 14 unit subcut BIDWM Patient Comments: Takes before lunch and dinner meals Date of admission: 10/17/24 16:08 Primary Care Provider: Alex,Yoshi Admitting Provider: Alejandra Bishop Attending physician on admission: Alejandra Bishop Condition: Stable
[2024-10-21 07:45] VITALS: BP 159/91; PULSE 75; RESP 18; TEMP 36.8; O2SAT 100
[2024-10-21] MEDS: SIMETHICONE 80 MG TAB.CHEW PO (07:53)
[2024-10-21] MEDS: DOCUSATE SODIUM 100 MG CAPSULE PO (07:55)
--- NOTE | 2024-10-21 09:40 | PC.NURSE ---
Reviewed standard discharge information with patient including monitoring for required output, transition of stools, feeding 8-12 times every 24 hours, milk production, and follow up at [place] and with family medicine physician assistant in the first week of life. Mastitis and engorgement discussed. Parents are encouraged to take the feeding log and continue to track feedings and output for the first week . Offered outpatient resources with [facility] referral and Services at [place]. Patient has a breast pump at home. Patient has the Mom/Baby Guide for further education and reference for common concerns, phone numbers, and guidance on when to call the doctor. A feeding plan was added to the infant?s discharge plan. Patient states that she has no further questions or concerns regarding .??
[2024-10-23 09:16] VITALS: BP 139/85; PULSE 88; RESP 18; TEMP 37.1; O2SAT 100
== END 2024-10-21 10:30 | disposition home or self-care (01) | DRG 786 ==
LOC: ANHLDR 10-18 21:46 → ANHOB2 10-19 01:05
PROVIDERS: Admitting Provider Obstetrics & Gynecology; Visit Provider Obstetrics & Gynecology
PROC: 10D00Z1 Extraction of Products of Conception, Low, Open Approach (ICD-10-PCS; CPT 59514; principal; 2024-10-18 21:15)
DX: O24.12 Pre-existing type 2 diabetes mellitus, in childbirth (principal); O41.1230 Chorioamnionitis, third trimester, not applicable or unspecified; Z37.0 Single live birth; Z3A.39 39 weeks gestation of pregnancy; O13.4 Gestational [pregnancy-induced] hypertension without significant proteinuria, complicating childbirth; O36.8330 Maternal care for abnormalities of the fetal heart rate or rhythm, third trimester, not applicable or unspecified; O62.1 Secondary uterine inertia; O69.81X0 Labor and delivery complicated by cord around neck, without compression, not applicable or unspecified
CPT/HCPCS: 36415; 80053; 81001; 82570; 82948; 84156; 84550; 85025; 85027; 86593; 86703; 86850; 86900; 86901; 88307; A9270; G0432; J0456; J1580; J1815; J1885; J2003; J2405; J2590; J2795; J3010; J3373; J7120; J7121